=== PATIENT | male | born 1965 | race Caucasian/White ===

== ENCOUNTER 2017-08-13 07:43 | Emergency (ER) | payer BC, MEDICAID ==
[~2017-08-13] VITALS: Ht 175.3 cm; Wt 83.9 kg
--- OUTSIDE RECORDS SUMMARY | 2017-08-13 07:48 | XMS REPORT ---
Author Author Virginia Villar [facility] Address [address], [place] [id number] Care Team Providers Care Qa Automation Engineer Name Role Phone Virginia Villar Unavailable PROBLEMS Type Condition ICD9-CM Code CWE33-LO Code Onset Dates Condition Status SNOMED Code Problem Hyperlipidemia E78.5 Active 60303450 Problem Hepatitis B B19.10 Active 72412550 Problem Acquired immune deficiency syndrome B20 Active 97145110 Problem Cough R05 Active 39916225 Problem Syncope and collapse R55 Active 393361959 Problem Shortness of breath R06.02 Active 818945982 Problem History of smoking 10-25 pack years Z87.891 Active 39335241 Problem Other fatigue R53.83 Active 52859668 ALLERGIES Unknown Allergies SOCIAL HISTORY No smoking Hx information available PLAN OF CARE Activity Details Follow Up 3 Months Reason:null Pending Test Human Immunodeficiency Virus (HIV-1), Quantitative, Real-time PCR (graph) 10533 Pending Test Vitamin B12 and Folate Pending Test Iron and Total Iron-Binding Capacity (TIBC) 68975 42943 Pending Test Vitamin D, 25-Hydroxy 39664 Pending Test Testosterone, Free, Direct with Total Testosterone 37788 22517 Pending Test B-Type Natriuretic Peptide (BNP) Pending Test Thyroid-Stimulating Hormone (TSH) and Free T4 55277/58440 Pending Test Metabolic Panel (14), Comprehensive (CMP) 06706 Pending Test CD4/CD8 Ratio Profile 97183 VITAL SIGNS Height 67.5 in 2016-11-11 Weight 165 lbs 2016-11-11 Temperature 96.7 degrees Fahrenheit 2016-11-11 Heart Rate 65 /min 2016-11-11 Respiratory Rate 18 /min 2016-11-11 Oximetry 99 % 2016-11-11 BMI 25.46 kg/m2 2016-11-11 Blood pressure systolic 118 mm Hg 2016-11-11 Blood pressure diastolic 82 mm Hg 2016-11-11 MEDICATIONS Medication Instructions Dosage Frequency Start Date End Date Duration Status Atripla 600-200-300 MG Orally Once a day 1 tablet on an empty stomach 24h Oct, 30 Active Atorvastatin Calcium 20 MG Orally Once a day 1 tablet 24h Oct, 30 day(s) Active RESULTS No Results PROCEDURES Procedure Date Ordered Related Diagnosis Body Site ASSAY OF IRON Nov 11, 2016 IRON BINDING TEST Nov 11, 2016 ASSAY THYROID STIM HORMONE Nov 11, 2016 BLOOD FOLIC ACID SERUM Nov 11, 2016 HIV-1, DNA, QUANT Nov 11, 2016 ASSAY OF VITAMIN D Nov 11, 2016 VITAMIN B-12 Nov 11, 2016 ASSAY OF FREE THYROXINE Nov 11, 2016 ASSAY OF TOTAL TESTOSTERONE Nov 11, 2016 COMPREHEN METABOLIC PANEL Nov 11, 2016 ASSAY OF TESTOSTERONE Nov 11, 2016 NATRIURETIC PEPTIDE Nov 11, 2016 T CELL, ABSOLUTE COUNT/RATIO Nov 11, 2016 Office Visit, Est Pt., Level 3 Nov 11, 2016 IMMUNIZATIONS No Known Immunizations
--- OUTSIDE RECORDS SUMMARY | 2017-08-13 07:48 | XMS REPORT ---
Author BOY Ware Organization [employer] Address Unknown Phone Unavailable Care Team Providers Care Field Secretary Name Role Phone BOY AMBRIZ CP Unavailable Allergies No Known Allergies Problems Problem Type Condition Code Onset Dates Condition Status Problem Dental examination Z01.20 Active Medications No Known Medications Results No Known Results Summary Purpose [employer] Submission
--- OUTSIDE RECORDS SUMMARY | 2017-08-13 07:48 | XMS REPORT ---
Author KARLOS Cain Organization [employer] Address Unknown Phone Unavailable Care Team Providers Care Junior Account Manager Name Role Phone KARLOS VIEYRA CP Unavailable Allergies, Adverse Reactions, Alerts Substance Reaction Event Type N.K.D.A. Info Not Available Non Drug Allergy Problems Problem Type Condition Code Onset Dates Condition Status Assessment Dental caries K02.9 Active Problem Dental examination Z01.20 Active Medications Medication Code System Code Instructions Start Date End Date Status Dosage Atripla [facility] [address]-37 600-200-300 MG Orally Once a day 1 tablet on an empty stomach Procedures Procedure Coding System Code Date EXTRAC ERUPTED TOOTH/EXPOSED ROOT CPT-4 D7140 October 15, 2015 EXTRAC ERUPTED TOOTH/EXPOSED ROOT CPT-4 D7140 October 15, 2015 EXTRAC ERUPTED TOOTH/EXPOSED ROOT CPT-4 D7140 October 15, 2015 Vital Signs Date/Time: October 15, 2015 Blood Pressure Diastolic 97 mmHg Blood Pressure Systolic 140 mmHg Results No Known Results Summary Purpose [employer] Submission
--- OUTSIDE RECORDS SUMMARY | 2017-08-13 07:49 | XMS REPORT ---
Author Author Virginia Villar Organization [employer] Address Unknown Phone Unavailable Care Team Providers Care Loan Officer Assistant Name Role Phone Virginia Villar Unavailable Allergies No Known Allergies Problems Problem Type Condition Code Onset Dates Condition Status Problem Hepatitis B B19.10 Active Problem AIDS B20 Active Problem Hyperlipidemia E78.5 Active Medications No Known Medications Results No Known Results Summary Purpose [employer] Submission
--- OUTSIDE RECORDS SUMMARY | 2017-08-13 07:49 | XMS REPORT ---
Author Author Virginia Villar Organization [facility] Address [address] [place] [id number] Care Team Providers Care Crosscutter Name Role Phone Virginia Villar Unavailable PROBLEMS Type Condition ICD9-CM Code NIG14-AC Code Onset Dates Condition Status SNOMED Code Problem Hyperlipidemia E78.5 Active 19604332 Problem Hepatitis B B19.10 Active 13448706 Problem Cough R05 Active 28212809 Problem Shortness of breath R06.02 Active 640884940 Problem Other fatigue R53.83 Active 14916625 Problem History of smoking 10-25 pack years Z87.891 Active 30296787 Problem Syncope and collapse R55 Active 126606694 Problem Acquired immune deficiency syndrome B20 Active 41771604 ALLERGIES No Information ENCOUNTERS Encounter Location Date Diagnosis [facility] [address] [phone] Jul, [address] [address] May, [address] [address] Feb, [address] [address] Feb, [facility] [address] [id number] Feb, Acquired immune deficiency syndrome B20 ; Vertigo R42 and Hyperlipidemia E78.[address] [address] Nov, [facility] [address] [id number] Nov, Acquired immune deficiency syndrome B20 ; Cough R05 ; History of smoking 10-25 pack years Z87.891 ; Other fatigue R53.83 ; Hepatitis B B19.10 ; Syncope and collapse R55 and Shortness of breath R06.[address] [id number] August, AIDS B20 ; Hepatitis B B19.10 and Other fatigue R53.[address] [id number] 10 May, 2016 AIDS B20 ; Hepatitis B B19.10 ; Hyperlipidemia E78.5 and Screening for prostate cancer Z12.[address] [id number] Jan, Acquired immune deficiency syndrome B20 ; Influenza vaccine needed Z23 ; Hepatitis B B19.10 and Hyperlipidemia E78.[address] [address] Oct, [address] [id number] Oct, Hyperlipidemia E78.5 ; Hepatitis B B19.10 and AIDS B20 [address] [address] Sep, [address] [address] Sep, [address] [address] Sep, IMMUNIZATIONS No Known Immunizations SOCIAL HISTORY Never Assessed REASON FOR VISIT PLAN OF CARE VITAL SIGNS MEDICATIONS Unknown Medications RESULTS No Results PROCEDURES No Known procedures INSTRUCTIONS MEDICATIONS ADMINISTERED No Known Medications MEDICAL (GENERAL) HISTORY Type Description Date Medical History HIV-1988 Medical History IVDU Medical History Hep B Surgical History nasal surgery 1988 Hospitalization History AIDS 2000
--- OUTSIDE RECORDS SUMMARY | 2017-08-13 07:49 | XMS REPORT ---
Author Author BOY AMBRIZ [facility] Address [address] [place] [address] Care Team Providers Care Fermentation Operator Name Role Phone KATINA BOY Unavailable PROBLEMS Type Condition ICD9-CM Code OUX31-OO Code Onset Dates Condition Status SNOMED Code Problem Hyperlipidemia, unspecified E78.5 Active 42293425 Problem Prostate cancer screening Z12.5 Active 301236405 Problem Human immunodeficiency virus (HIV) disease B20 Active 23024736 Problem Dental examination Z01.20 Active 627358294 ALLERGIES No Information SOCIAL HISTORY Never Assessed PLAN OF CARE Activity Details Pending Test CBC VITAL SIGNS MEDICATIONS Unknown Medications RESULTS Name Result Date Reference Range SYPHILIS (RPR W/ REFLEX CONFIRMATION) 2016-05-18 RPR Non Reactive Non Reactive CD4/CD8 T CELL 2016-05-18 Absolute CD 4 [place] [phone] % CD 4 Pos. Lymph. 36.1 30.8-58.5 Abs. CD 8 Suppressor 1030 109-897 % CD 8 Pos. Lymph. 42.9 12.0-35.5 CD4/CD8 Ratio 0.84 0.92-3.72 WBC 8.7 3.4-10.8 RBC 5.28 4.14-5.80 Hemoglobin 15.7 12.6-17.7 Hematocrit 45.7 37.5-51.0 MCV 87 79-97 MCH 29.7 26.6-33.0 MCHC 34.4 31.5-35.7 RDW 14.1 12.3-15.4 Platelets 253 150-379 Neutrophils 58 Lymphs 28 Monocytes 9 Eos 4 Basos 1 Neutrophils (Absolute) 5.1 1.4-7.0 Lymphs (Absolute) 2.4 0.7-3.1 Monocytes(Absolute) 0.8 0.1-0.9 Eos (Absolute) 0.4 0.0-0.4 Baso (Absolute) 0.1 0.0-0.2 Immature Granulocytes 0 Immature Grans (Abs) 0.0 0.0-0.1 HIV PCR (Graph)-APPROVAL REQUIRED 2016-05-18 HIV-1 RNA by PCR <20 log10 HIV-1 RNA TNP PSA 2016-05-18 Prostate Specific Ag, Serum 0.7 0.0-4.0 LIPID PANEL 2016-05-18 Cholesterol, Total 166 100-199 Triglycerides 225 0-149 HDL Cholesterol 33 >39 VLDL Cholesterol [place] 45 5-40 LDL Cholesterol Calc 88 0-99 CMP 2016-05-18 Glucose, Serum 90 65-99 BUN 14 6-24 Creatinine, Serum 1.32 0.76-1.27 eGFR If NonAfricn Am 62 >59 eGFR If Africn Am 71 >59 BUN/Creatinine Ratio 11 9-20 Sodium, Serum 141 134-144 Potassium, Serum 4.3 3.5-5.2 Chloride, Serum 98 96-106 Carbon Dioxide, Total 26 18-29 Calcium, Serum 9.9 8.7-10.2 Protein, Total, Serum 6.8 6.0-8.5 Albumin, Serum 4.2 3.5-5.5 Globulin, Total 2.6 1.5-4.5 A/G Ratio 1.6 1.1-2.5 Bilirubin, Total <0.2 0.0-1.2 Alkaline Phosphatase, S 69 39-117 AST (SGOT) 31 0-40 ALT (SGPT) 52 0-44 PDF Report 2016-05-18 PDF Report1 [facility] PROCEDURES Procedure Date Ordered Result Body Site COMPLETE CBC W/AUTO DIFF WBC May 18, 2016 COMPREHEN METABOLIC PANEL May 18, 2016 VENIPUNCT, ROUTINE* May 18, 2016 ASSAY OF PSA, TOTAL May 18, 2016 T CELL, ABSOLUTE COUNT/RATIO May 18, 2016 LIPID PANEL May 18, 2016 BLOOD SEROLOGY, QUALITATIVE May 18, 2016 HIV-1, DNA, QUANT May 18, 2016 IMMUNIZATIONS No Known Immunizations MEDICAL (GENERAL) HISTORY Type Description Date Medical History HIV/AIDS Medical History Hepatitis B
--- OUTSIDE RECORDS SUMMARY | 2017-08-13 07:49 | XMS REPORT ---
Author KARLOS Cain Organization [employer] Address Unknown Phone Unavailable Care Team Providers Care Consulting Nurse Name Role Phone KARLOS VIEYRA CP Unavailable Allergies No Known Allergies Problems Problem Type Condition Code Onset Dates Condition Status Problem Dental examination Z01.20 Active Medications Medication Code System Code Instructions Start Date End Date Status Dosage Amoxicillin [facility][NOTE 2] [address]-75 500 MG Orally every 8 hrs September 30, 2015 October 07, 2015 1 capsule Results No Known Results Summary Purpose eClinicalWorks Submission
--- OUTSIDE RECORDS SUMMARY | 2017-08-13 07:49 | XMS REPORT ---
Author Rhoda Yepez [facility] e[employer] Address Unknown Phone Unavailable Care Team Providers Care Warp Dresser Name Role Phone Rhoda Rivera CP Unavailable Allergies, Adverse Reactions, Alerts Substance Reaction Event Type N.K.D.A. Info Not Available Non Drug Allergy Problems Problem Type Condition Code Onset Dates Condition Status Problem Hepatitis B B19.10 Active Problem AIDS B20 Active Problem Hyperlipidemia E78.5 Active Assessment AIDS B20 Active Assessment Hyperlipidemia E78.5 Active Assessment Hepatitis B B19.10 Active Medications Medication Code System Code Instructions Start Date End Date Status Dosage Atripla [facility] [address]-80 600-200-300 MG Orally Once a day September 10, 2015 1 tablet on an empty stomach Atorvastatin Calcium [facility] [address]-18 20 MG Orally Once a day October 09, 2015 1 tablet Procedures Procedure Coding System Code Date Office Visit, New Pt., Level 2 CPT-4 06563 October 09, 2015 Vital Signs Date/Time: October 09, 2015 Temperature 97.2 F Weight 164.9 lbs Height 68 in Respiratory Rate 18 /min Cardiac Monitoring Heart Rate 72 /min Blood Pressure Diastolic 70 mm Hg Blood Pressure Systolic 116 mm Hg BMI 25.07 Index Results No Known Results Summary Purpose [employer]ClinicalWorks Submission
--- OUTSIDE RECORDS SUMMARY | 2017-08-13 07:49 | XMS REPORT ---
Author Author Virginia Villar [facility] Address [address] [place], [place] [id number] Care Team Providers Care Green Pipefitter Name Role Phone Virginia Villar Unavailable PROBLEMS Type Condition ICD9-CM Code YXW07-KD Code Onset Dates Condition Status SNOMED Code Problem Hyperlipidemia E78.5 Active 71597051 Problem Hepatitis B B19.10 Active 26773331 Problem Cough R05 Active 87275341 Problem Shortness of breath R06.02 Active 766902654 Problem Other fatigue R53.83 Active 91212043 Problem History of smoking 10-25 pack years Z87.891 Active 49942620 Problem Syncope and collapse R55 Active 447140912 Problem Acquired immune deficiency syndrome B20 Active 87433848 ALLERGIES No Information SOCIAL HISTORY Never Assessed PLAN OF CARE VITAL SIGNS MEDICATIONS Unknown Medications RESULTS No Results PROCEDURES No Known procedures IMMUNIZATIONS No Known Immunizations MEDICAL (GENERAL) HISTORY Type Description Date Medical History HIV-1988 Medical History IVDU Medical History Hep B Surgical History nasal surgery 1988 Hospitalization History AIDS 2000
--- OUTSIDE RECORDS SUMMARY | 2017-08-13 07:49 | XMS REPORT ---
Author Author Virginia Villar [facility] Address [address] [place], [place] [id number] Care Team Providers Care Cable Assembler And Swager Name Role Phone Virginia Villar Unavailable PROBLEMS Type Condition ICD9-CM Code OWI74-QN Code Onset Dates Condition Status SNOMED Code Problem Hyperlipidemia E78.5 Active 13654853 Problem Hepatitis B B19.10 Active 60571772 Problem Acquired immune deficiency syndrome B20 Active 20430883 Problem Cough R05 Active 61452414 Problem Syncope and collapse R55 Active 740014957 Problem Shortness of breath R06.02 Active 260022555 Problem History of smoking 10-25 pack years Z87.891 Active 67910342 Problem Other fatigue R53.83 Active 23648722 ALLERGIES Unknown Allergies SOCIAL HISTORY No smoking Hx information available PLAN OF CARE VITAL SIGNS MEDICATIONS Unknown Medications RESULTS No Results PROCEDURES No Known procedures IMMUNIZATIONS No Known Immunizations
--- OUTSIDE RECORDS SUMMARY | 2017-08-13 07:49 | XMS REPORT ---
Author BOY Ware Organization [employer] Address Unknown Phone Unavailable Care Team Providers Care Freight Sorter Name Role Phone BOY AMBRIZ CP Unavailable Allergies No Known Allergies Problems Problem Type Condition Code Onset Dates Condition Status Problem Dental examination Z01.20 Active Medications No Known Medications Results No Known Results Summary Purpose eClinicalWorks Submission
--- OUTSIDE RECORDS SUMMARY | 2017-08-13 07:49 | XMS REPORT ---
Author Author Virginia Villar [facility] Address [address] [place], [place] [address] Care Team Providers Care Agriscience Technology Instructor Name Role Phone Virginia Villar Unavailable PROBLEMS Type Condition ICD9-CM Code BFZ35-LE Code Onset Dates Condition Status SNOMED Code Problem Hyperlipidemia E78.5 Active 42030175 Problem Hepatitis B B19.10 Active 91350889 Problem Cough R05 Active 77122894 Problem Shortness of breath R06.02 Active 220526334 Problem Other fatigue R53.83 Active 83198300 Problem History of smoking 10-25 pack years Z87.891 Active 75693125 Problem Syncope and collapse R55 Active 950821429 Problem Acquired immune deficiency syndrome B20 Active 53698330 ALLERGIES No Information SOCIAL HISTORY Never Assessed PLAN OF CARE VITAL SIGNS MEDICATIONS Unknown Medications RESULTS No Results PROCEDURES No Known procedures IMMUNIZATIONS No Known Immunizations MEDICAL (GENERAL) HISTORY Type Description Date Medical History HIV-1988 Medical History IVDU Medical History Hep B Surgical History nasal surgery 1988 Hospitalization History AIDS 2000
--- OUTSIDE RECORDS SUMMARY | 2017-08-13 07:49 | XMS REPORT ---
Author Author Virginia Villar [facility] [employer] Address Unknown Phone Unavailable Care Team Providers Care Supervisor Park Workers Name Role Phone Virginia Villar CP Unavailable Allergies No Known Allergies Problems Problem Type Condition Code Onset Dates Condition Status Problem Hepatitis B B19.10 Active Problem AIDS B20 Active Problem Hyperlipidemia E78.5 Active Assessment Hepatitis B B19.10 Active Assessment Hyperlipidemia E78.5 Active Assessment Acquired immune deficiency syndrome B20 Active Assessment Influenza vaccine needed Z23 Active Medications Medication Code System Code Instructions Start Date End Date Status Dosage Atripla [facility] [address]-76 600-200-300 MG Orally Once a day September 10, 2015 1 tablet on an empty stomach Atorvastatin Calcium [facility] [address]-10 20 MG Orally Once a day October 09, 2015 1 tablet Procedures Procedure Coding System Code Date T CELL, ABSOLUTE COUNT/RATIO CPT-4 97789 Jan 22, 2016 HIV-1, DNA, QUANT CPT-4 16357 Jan 22, 2016 COMPREHEN METABOLIC PANEL CPT-4 12674 Jan 22, 2016 Office Visit, Est Pt., Level 3 CPT-4 19277 Jan 22, 2016 LIPID PANEL SO CPT-4 88480 Jan 22, 2016 IMMUNIZATION ADMIN CPT-4 61143 Jan 22, 2016 FLU VAC NO PRSV 4 JU 3 YRS+ CPT-4 45436 Jan 22, 2016 HEPATITIS B, QUANT CPT-4 51265 Jan 22, 2016 Vital Signs Date/Time: Jan 22, 2016 Temperature 98.1 F Weight 166 lbs Height 67.5 in Respiratory Rate 16 /min Cardiac Monitoring Heart Rate 64 /min Blood Pressure Diastolic 80 mm Hg Blood Pressure Systolic 140 mm Hg BMI 25.61 Index Results Name Result Date Reference Range Unit Abnormality Flag Lipid Panel 85372 ----HDL Cholesterol 37 92221228 >39 mg/dL L ----VLDL Cholesterol [place] 38 67812013 5-40 mg/dL ----LDL Cholesterol Calc 81 29963266 0-99 mg/dL ----Comment: GILL TENDER [id number] ----Cholesterol, Total 156 36246211 100-199 mg/dL ----Triglycerides 188 43410461 0-149 mg/dL H Metabolic Panel (14), Comprehensive ([facility]) 24093 ----Globulin, Total 2.1 00050127 1.5-4.5 g/dL ----eGFR If Africn Am 75 18997389 >59 mL/min/1.73 ----eGFR If NonAfricn Am 65 71691590 >59 mL/min/1.73 ----Albumin, Serum 4.4 68938988 3.5-5.5 g/dL ----Sodium, Serum 142 47587046 136-144 mmol/L ----Protein, Total, Serum 6.5 57003198 6.0-8.5 g/dL ----BUN/Creatinine Ratio 10 92513539 9-20 ----Calcium, Serum 9.2 01448847 8.7-10.2 mg/dL ----AST (SGOT) 36 12488327 0-40 IU/L ----Glucose, Serum 88 01173565 65-99 mg/dL ----Alkaline Phosphatase, S 60 75729397 39-117 IU/L ----Bilirubin, Total <0.2 76204729 0.0-1.2 mg/dL ----Creatinine, Serum 1.27 64879276 0.76-1.27 mg/dL ----A/G Ratio 2.1 51524244 1.1-2.5 ----BUN 13 74836942 6-24 mg/dL ----Carbon Dioxide, Total 22 59765000 18-29 mmol/L ----ALT (SGPT) 51 95567488 0-44 IU/L H ----Potassium, Serum 4.0 98939645 3.5-5.2 mmol/L ----Chloride, Serum 101 46999956 97-106 mmol/L Human Immunodeficiency Virus (HIV-1), Quantitative, Real-time PCR (graph) 44881 ----HIV-1 RNA by PCR <20 20661730 copies/mL ----log10 HIV-1 RNA TNP 21246601 kea34ssal/mL Hepatitis B (HBV) RT PCR, Quant (Graph) 30411 ----log10 HBV IU/mL TNP 13417159 pgj80NK/mL ----HBV IU/mL <20 42985314 IU/mL CD4/CD8 Ratio Profile 18385 ----Hemoglobin 15.4 82897639 12.6-17.7 g/dL ----RBC 5.32 67411438 4.14-5.80 x10E6/uL ----WBC 7.6 84915638 3.4-10.8 x10E3/uL ----CD4/CD8 Ratio 1.02 58492757 0.92-3.72 ----% CD 8 Pos. Lymph. 38.5 35006623 12.0-35.5 % H ----Abs. CD 8 Suppressor 693 03347651 109-897 /uL ----% CD 4 Pos. Lymph. 39.3 45510623 30.8-58.5 % ----Immature Cells GILL TENDER 20160122 ----Absolute CD 4 [place] 707 18205706 359-1519 /uL ----Lymphs (Absolute) 1.8 51521621 0.7-3.1 x10E3/uL ----Neutrophils (Absolute) 4.7 71569495 1.4-7.0 x10E3/uL ----Eos (Absolute) 0.3 31429712 0.0-0.4 x10E3/uL ----Monocytes(Absolute) 0.8 00435219 0.1-0.9 x10E3/uL ----Immature Granulocytes 0 79264352 % ----Baso (Absolute) 0.1 41720975 0.0-0.2 x10E3/uL ----NRBC GILL TENDER 20160122 ----Immature Grans (Abs) 0.0 04445439 0.0-0.1 x10E3/uL ----Eos 4 78923975 % ----Basos 1 87831963 % ----Platelets 239 02370298 150-379 x10E3/uL ----Neutrophils 61 14670762 % ----Hematology Comments: GILL TENDER [id number] ----Lymphs 24 78401906 % ----Monocytes 10 68132098 % ----MCV 87 01970317 79-97 fL ----MCH 28.9 27043658 26.6-33.0 pg ----MCHC 33.4 00419230 31.5-35.7 g/dL ----RDW 15.3 02308416 12.3-15.4 % ----Hematocrit 46.1 53382238 37.5-51.0 % Immunizations Vaccine Administration Date Influenza Split 3 yrs > (QUAD) Jan 22, 2016 Summary Purpose eClinicalWorks Submission
--- OUTSIDE RECORDS SUMMARY | 2017-08-13 07:49 | XMS REPORT ---
Author Author Nicole Rhoda [facility] Address [address] [place], [place] [address] Care Team Providers Care Senior Data Warehouse Architect Name Role Phone Rhoda Rivera Unavailable PROBLEMS Type Condition ICD9-CM Code LCP51-AN Code Onset Dates Condition Status SNOMED Code Problem Hyperlipidemia E78.5 Active 03813401 Problem Hepatitis B B19.10 Active 81158281 Assessment Other fatigue R53.83 August, Active 86669462 Problem AIDS B20 Active 34019196 Assessment AIDS B20 August, Active 61696378 ALLERGIES Substance Reaction Event Type Date Status N.K.D.A. Unknown Non Drug Allergy August, Unknown SOCIAL HISTORY No smoking Hx information available PLAN OF CARE Activity Details Pending Test Human Immunodeficiency Virus (HIV-1), Quantitative, Real-time PCR (graph) 84479 Pending Test Hepatitis B (HBV) RT PCR, Quant (Graph) 47640 Pending Test Rapid Plasma Reagin (RPR), Test w/ Reflex to Quant RPR/Confirm Treponema pallidum Antibodies 41323 Pending Test Thyroid-Stimulating Hormone (TSH) and Free T4 11869/67982 Pending Test Metabolic Panel (14), Comprehensive (CMP) 00373 Pending Test CD4/CD8 Ratio Profile 62117 3 Months,Reason: VITAL SIGNS Height 67.5 in 2016-08-12 Weight 165 lbs 2016-08-12 Temperature 97.1 degrees Fahrenheit 2016-08-12 Heart Rate 71 /min 2016-08-12 Respiratory Rate 16 /min 2016-08-12 Oximetry 98 % 2016-08-12 BMI 25.46 kg/m2 2016-08-12 Blood pressure systolic 108 mm Hg 2016-08-12 Blood pressure diastolic 80 mm Hg 2016-08-12 MEDICATIONS Medication Instructions Dosage Frequency Start Date End Date Duration Status Atripla 600-200-300 MG Orally Once a day 1 tablet on an empty stomach 24h Sep, 30 days Active Atorvastatin Calcium 20 MG Orally Once a day 1 tablet 24h Oct, 30 day(s) Active RESULTS No Results PROCEDURES Procedure Date Ordered Related Diagnosis Body Site COMPLETE BLOOD COUNT W/AUTO DIFF August 12, 2016 T CELL, ABSOLUTE COUNT/RATIO August 12, 2016 HEPATITIS B, QUANT August 12, 2016 ASSAY OF FREE THYROXINE August 12, 2016 Office Visit, Est Pt., Level 3 August 12, 2016 COMPREHEN METABOLIC PANEL August 12, 2016 HIV-1, DNA, QUANT August 12, 2016 ASSAY THYROID STIM HORMONE August 12, 2016 BLOOD SEROLOGY, QUALITATIVE August 12, 2016 IMMUNIZATIONS No Known Immunizations
--- OUTSIDE RECORDS SUMMARY | 2017-08-13 07:49 | XMS REPORT ---
Author Author RiveraRhoda [facility] Address [address] [place], [place] [id number] Care Team Providers Care Psychology Tech Name Role Phone Rhoda Rivera Unavailable PROBLEMS Type Condition ICD9-CM Code QAN23-MK Code Onset Dates Condition Status SNOMED Code Problem Hyperlipidemia E78.5 Active 00377500 Problem Hepatitis B B19.10 Active 19345640 Problem Cough R05 Active 04935570 Problem Shortness of breath R06.02 Active 968030835 Problem Other fatigue R53.83 Active 21458631 Problem History of smoking 10-25 pack years Z87.891 Active 08308748 Problem Syncope and collapse R55 Active 523356312 Problem Acquired immune deficiency syndrome B20 Active 24493661 ALLERGIES No Known Allergies SOCIAL HISTORY Never Assessed PLAN OF CARE Activity Details Follow Up 3 Months Reason: Pending Test Human Immunodeficiency Virus (HIV-1), Quantitative, Real-time PCR (graph) 57694 Pending Test Metabolic Panel (14), Comprehensive (CMP) 17011 Pending Test CD4/CD8 Ratio Profile [address] Scan : Head with and without Contrast VITAL SIGNS Height 67.5 in 2017-02-03 Weight 167 lbs 2017-02-03 Temperature 97.4 degrees Fahrenheit 2017-02-03 Heart Rate 71 /min 2017-02-03 Respiratory Rate 16 /min 2017-02-03 Oximetry 99 % 2017-02-03 BMI 25.77 kg/m2 2017-02-03 Blood pressure systolic 98 mm Hg 2017-02-03 Blood pressure diastolic 64 mm Hg 2017-02-03 MEDICATIONS Medication Instructions Dosage Frequency Start Date End Date Duration Status Genvoya 150 mg/150 mg/200/mg/10 mg Oral Once a day 1 tablet 24h Feb, 30 days Active RESULTS No Results PROCEDURES Procedure Date Ordered Result Body Site COMPLETE BLOOD COUNT W/AUTO DIFF Feb 03, 2017 T CELL, ABSOLUTE COUNT/RATIO Feb 03, 2017 COMPREHEN METABOLIC PANEL Feb 03, 2017 HIV-1, DNA, QUANT Feb 03, 2017 IMMUNIZATIONS No Known Immunizations MEDICAL (GENERAL) HISTORY Type Description Date Medical History HIV-1988 Medical History IVDU Medical History Hep B Surgical History nasal surgery 1987 Hospitalization History AIDS 2000
--- OUTSIDE RECORDS SUMMARY | 2017-08-13 07:50 | XMS REPORT | Continuity of Care Document ---
Author Author [facility] Organization [facility] Address Unknown Phone Unavailable Allergies There is no data. Medications There is no data. Problems Date Dx Coded Attending Type Code Diagnosis Diagnosed By 10/06/2015 ELISSA MAHONEY WHNP Ot B20 HUMAN IMMUNODEFICIENCY VIRUS [HIV] DISEA 10/06/2015 ELISSA MAHONEY WHNP Ot B20 HUMAN IMMUNODEFICIENCY VIRUS [HIV] DISEA 10/06/2015 ELISSA MAHONEY WHNP Ot B20 HUMAN IMMUNODEFICIENCY VIRUS [HIV] DISEA 10/06/2015 ELISSA MAHONEY WHNP Ot B20 HUMAN IMMUNODEFICIENCY VIRUS [HIV] DISEA 10/07/2015 ELISSA MAHONEY WHNP Ot B20 HUMAN IMMUNODEFICIENCY VIRUS [HIV] DISEA 10/09/2015 ELISSA MAHONEY WHNP Ot B20 HUMAN IMMUNODEFICIENCY VIRUS [HIV] DISEA 10/12/2015 ELISSA MAHONEY WHNP Ot B20 HUMAN IMMUNODEFICIENCY VIRUS [HIV] DISEA 10/26/2015 ELISSA MAHONEY WHNP Ot B20 HUMAN IMMUNODEFICIENCY VIRUS [HIV] DISEA 02/07/2017 ELISSA MAHONEY WHNP Ot B20 HUMAN IMMUNODEFICIENCY VIRUS [HIV] DISEA 02/08/2017 ELISSA MAHONEY WHNP Ot B20 HUMAN IMMUNODEFICIENCY VIRUS [HIV] DISEA 02/09/2017 ELISSA MAHONEY WHNP Ot B20 HUMAN IMMUNODEFICIENCY VIRUS [HIV] DISEA 02/27/2017 OTHER, UNLISTED Ot R42 DIZZINESS AND GIDDINESS 03/10/2017 ELISSA MAHONEY WHNP Ot B20 HUMAN IMMUNODEFICIENCY VIRUS [HIV] DISEA 03/10/2017 OTHER, UNLISTED Ot R42 DIZZINESS AND GIDDINESS 03/16/2017 OTHER, UNLISTED Ot R42 DIZZINESS AND GIDDINESS Procedures There is no data. Results Test Result Range CD4/CD8 Ratio Profile - 05/18/16 15:33 WBC 8.7 x10E3/uL 3.4-10.8 RBC 5.28 x10E6/uL 4.14-5.80 Hemoglobin 15.7 g/dL 12.6-17.7 Hematocrit 45.7 % 37.5-51.0 MCV 87 fL 79-97 MCH 29.7 pg 26.6-33.0 MCHC 34.4 g/dL 31.5-35.7 RDW 14.1 % 12.3-15.4 Platelets 253 x10E3/uL 150-379 Neutrophils 58 % Lymphs 28 % Monocytes 9 % Eos 4 % Basos 1 % Neutrophils (Absolute) 5.1 x10E3/uL 1.4-7.0 Lymphs (Absolute) 2.4 x10E3/uL 0.7-3.1 Monocytes(Absolute) 0.8 x10E3/uL 0.1-0.9 Eos (Absolute) 0.4 x10E3/uL 0.0-0.4 Baso (Absolute) 0.1 x10E3/uL 0.0-0.2 Immature Granulocytes 0 % Immature Grans (Abs) 0.0 x10E3/uL 0.0-0.1 Absolute CD 4 [place] 866 /uL [id number] Abs. CD 8 Suppressor 1030 /uL 109-897 % CD 4 Pos. Lymph. 36.1 % 30.8-58.5 % CD 8 Pos. Lymph. 42.9 % 12.0-35.5 CD4/CD8 Ratio 0.84 0.92-3.72 Comp. Metabolic Panel (14) - 05/18/16 15:33 Glucose, Serum 90 mg/dL 65-99 BUN 14 mg/dL 6-24 Creatinine, Serum 1.32 mg/dL 0.76-1.27 eGFR If NonAfricn Am 62 mL/min/1.73 >59 eGFR If Africn Am 71 mL/min/1.73 >59 BUN/Creatinine Ratio 11 9-20 Sodium, Serum 141 mmol/L 134-144 Potassium, Serum 4.3 mmol/L 3.5-5.2 Chloride, Serum 98 mmol/L 96-106 Carbon Dioxide, Total 26 mmol/L 18-29 Calcium, Serum 9.9 mg/dL 8.7-10.2 Protein, Total, Serum 6.8 g/dL 6.0-8.5 Albumin, Serum 4.2 g/dL 3.5-5.5 Globulin, Total 2.6 g/dL 1.5-4.5 A/G Ratio 1.6 1.1-2.5 Bilirubin, Total <0.2 mg/dL 0.0-1.2 Alkaline Phosphatase, S 69 IU/L 39-117 AST (SGOT) 31 IU/L 0-40 ALT (SGPT) 52 IU/L 0-44 Lipid Panel - 05/18/16 15:33 Cholesterol, Total 166 mg/dL 100-199 Triglycerides 225 mg/dL 0-149 HDL Cholesterol 33 mg/dL >39 VLDL Cholesterol [place] 45 mg/dL 5-40 LDL Cholesterol Calc 88 mg/dL 0-99 RNA, Real Time PCR (Graph) - 05/18/16 15:33 HIV-1 RNA by PCR <20 copies/mL log10 HIV-1 RNA TNP [id number]/mL Prostate-Specific Ag, Serum - 05/18/16 15:33 Prostate Specific Ag, Serum 0.7 ng/mL 0.0-4.0 RPR, Rfx Qn RPR/Confirm TP - 05/18/16 15:33 RPR Non Reactive Non Reactive CD4/CD8 Ratio Profile [id number] - 02/06/17 09:41 Absolute CD 4 [place] TNP NRG % CD 4 Pos. Lymph. 39.0 % 30.8-58.5 Abs. CD 8 Suppressor TNP NRG % CD 8 Pos. Lymph. 43.3 % 12.0-35.5 CD4/CD8 Ratio 0.90 0.92-3.72 WBC 7.4 x10E3/uL 3.4-10.8 RBC 5.22 x10E6/uL 4.14-5.80 Hemoglobin 15.8 g/dL 12.6-17.7 Hematocrit 48.9 % 37.5-51.0 MCV 94 fL 79-97 MCH 30.3 pg 26.6-33.0 MCHC 32.3 g/dL 31.5-35.7 RDW 14.5 % 12.3-15.4 Platelets 243 x10E3/uL 150-379 Neutrophils TNP NRG Lymphs TNP NRG Monocytes TNP NRG Eos TNP NRG Basos PHARMACEUTICAL DEVELOPMENT TECHNICIAN NRG Immature Cells PHARMACEUTICAL DEVELOPMENT TECHNICIAN NRG Neutrophils (Absolute) PHARMACEUTICAL DEVELOPMENT TECHNICIAN NRG Lymphs (Absolute) TNP NRG Monocytes(Absolute) PHARMACEUTICAL DEVELOPMENT TECHNICIAN NRG Eos (Absolute) TNP NRG Baso (Absolute) TNP NRG Immature Granulocytes PHARMACEUTICAL DEVELOPMENT TECHNICIAN NRG Immature Grans (Abs) PHARMACEUTICAL DEVELOPMENT TECHNICIAN NRG NRBC PHARMACEUTICAL DEVELOPMENT TECHNICIAN NRG Hematology Comments: Note: NRG Written Authorization - 02/06/17 09:41 Written Authorization NRG Encounters ACCT No. Visit Date/Time Discharge Status Pt. Type Provider Facility Loc./Unit Complaint [id number] 02/09/2017 12:50:00 02/09/2017 23:59:59 CLS Outpatient OTHER, UNLISTED [facility] RAD R42 VERTIGO [id number] 09/14/2015 08:45:00 09/14/2015 23:59:59 CLS Outpatient ELISSA MAHONEY WHNP [facility] LAB HIV [id number] 07/14/2017 11:45:00 07/14/2017 23:59:59 CLS Outpatient MARTÍN FAY [facility] [id number] 05/20/2016 22:07:00 Document Registration [id number] 02/03/2017 10:00:00 02/03/2017 23:59:59 CLS Outpatient [facility] Vill[facility] [id number] 02/03/2017 10:00:00 Document Registration
--- NOTE | 2017-08-13 07:55 | ED Neurological Problem ---
General Stated Complaint: SEIZURE Source: patient Exam Limitations: no limitations History of Present Illness Date Seen by Provider: August 13, 2017 Time Seen by Provider: 07:45 Initial Comments The patient presents to the ER by EMS with a chief complaint that just prior to arrival he is having some seizure-like activity. His mother reported to EMS that he does not have any history of seizures. The patient arrives in a non- postictal state and answers questions appropriately. EMS reports when they first arrived he was violently postictal and swinging at the fire department and they were having difficulty getting vital signs are loading him up. Patient states he has had a beer 2 days ago but does not use any recreational drugs. He does still smoke cigarettes. He was working in the backyard with a chain saw all day and his dad says he is afraid maybe overdid it. He does have a history of HIV and is being treated by JOSE Morataya which time through the [facility] but no other significant medical history or surgical history. He does not presently take any medications. He denies any trauma, falls, car wrecks recently. He is not having any pain, nausea, chills, fever, shortness of breath. He has a cough that he attributes to allergies for the past couple days but is not taking anything for it. The patient states he did bite the side of his tongue and had some blood coming from it this morning. His family arrives and is a little more history that his girlfriend says she was awoken by him shaking in the bed with some blood out of the side of his mouth. His mother states that about one year ago in the summer he had a similar episode of having a seizure like activity while asleep witnessed by girlfriend. He has not had that worked up although he did have a CT scan about 3 months ago for an unrelated issue and was told it was normal. Allergies and Home Medications Allergies Coded Allergies: No Known Drug Allergies (Unverified , 08/13/17) Patient Home Medication List Home Medication List Reviewed: Yes Review of Systems Constitutional: No chills, No diaphoresis, No fever, No malaise Eyes: Denies Blindness, Denies Blurred Vision, Denies Pain, Denies Photophobia Ears, Nose, Mouth, Throat: denies ear pain, denies ear discharge Respiratory: cough (nonproductive); No phlegm, No short of breath Cardiovascular: No chest pain, No edema, No Hx of Intervention, No palpitations , No vascular heart diseas Gastrointestinal: No abdominal pain, No constipation, No diarrhea, No nausea, No vomiting Genitourinary: No discharge, No dysuria Musculoskeletal: No back pain, No joint pain Skin: No pruritus, No rash Psychiatric/Neurological: Denies Cognitive Dysfunction, Denies Headache, Denies Numbness Past Tvwybju-Vttevj-Vexrgy Hx Patient Social History Alcohol Use: Occasionally Uses Alcohol Beverage of Choice: Beer (last drink was 2 days ago) Recreational Drug Use: No Smoking Status: Current Everyday Smoker Type Used: Cigarettes (1 ppd) Physical Exam Vital Signs Vital Signs - First Documented 08/13/17 08:11 Temp 98.2 Pulse 95 Resp 16 B/P (MAP) 132/80 (97) Pulse Ox 98 Capillary Refill : General Appearance: WD/WN, no apparent distress HEENT: PERRL/EOMI, normal ENT inspection, pharynx normal Neck: non-tender, supple, normal inspection Respiratory: chest non-tender, lungs clear, normal breath sounds, no respiratory distress, no accessory muscle use Cardiovascular: normal peripheral pulses, regular rate, rhythm, no edema Gastrointestinal: normal bowel sounds, non tender, soft Extremities: normal range of motion, non-tender, normal inspection Neurologic/Psychiatric: drop man II-XII nml as tested, no motor/sensory deficits, alert, normal mood/affect, oriented x 3 Crainal Nerves: normal hearing, normal speech, PERRL Coordination/Gait: normal finger to nose, normal gait Motor/Sensory: no motor deficit, no sensory deficit Skin: normal color, warm/dry Stroke Onset of Symptoms Date of Onset of Symptoms: August 13, 2017 Time of Symptom Onset: 09:35 Onset of Symptoms: Yes Symptoms onset unknown: No NIH Stroke Scale Assessment Select: Initial Level of Consciousness: 0=Alert (0), Level of Consciousness- Questions: 2=Answer neither question (2), LOC Commands: 0=Performs both tasks (0 ), Gaze: Normal (0), Visual Larios: 0=No visual loss (0), Facial Movement ( Facial Paresis): 0=Normal symmetrical mnt (0), Motor Function-Arms Right: 0=No drift (0), Motor Function-Arms Left: 0=No drift (0), Motor Function-Legs Right: 0=No drift (0), Motor Function-Legs Left: 0=No drift (0), Limb Ataxia: 0=Absent (0), Sensory: 0=Normal:no loss (0), Best Language: 2=Severe aphasia (2), Dysarthria: 1=Mild to moderate loss (1), Extinction & Inattention: 0=No abnormality (0), Total: 5 Stroke Thrombolytic Exclusion Age 18 or Over: No Acute intenal hemorrhage: No History of CVA: No Uncontrolled Coagulation Defec: No Intracranial Hemorrhage: No Severe Hypertension: No GI or Bleed: No Subarachnoid Hemorrhage: No Intracranial Neoplasm/Aneurysm: No Oral Anticoagulants: No Surgery or Trauma: No Puncture of Non-Compressible V: No Recent CPR: No Diabetic Hemorrhagic Retinopat: No Organ Biopsy: No Recent Obstetric Delivery: No Glucose: No (100) Significant Hepatic Dysfunctio: No NIH Stoke Scale >22: No Bacterial Endocarditis: No Pericarditis: No Improving Symptoms: Yes Platelets: No TPA Contraindication: Yes IV - TPa Received IV - TPa Procedure Performed?: No Progress/Results/Core Measures Results/Orders Lab Results Laboratory Tests Test 08/13/17 07:55 08/13/17 08:00 08/13/17 08:09 08/13/17 09:47 Range/Units Urine Color YELLOW Urine Clarity CLEAR Urine pH 6 5-9 Urine Specific [place] 1.020 1.016-1.022 Urine Protein 1+ H NEGATIVE Urine Glucose (UA) NEGATIVE NEGATIVE Urine Ketones NEGATIVE NEGATIVE Urine Nitrite NEGATIVE NEGATIVE Urine Bilirubin NEGATIVE NEGATIVE Urine Urobilinogen NORMAL NORMAL MG/DL Urine Leukocyte Esterase NEGATIVE NEGATIVE Urine RBC (Auto) 2+ H NEGATIVE Urine RBC NONE /HPF Urine WBC NONE /HPF Urine Crystals NONE /LPF Urine Bacteria NEGATIVE /HPF Urine Casts NONE /LPF Urine Mucus NEGATIVE /LPF Urine Culture Indicated NO Urine Opiates Screen NEGATIVE NEGATIVE Urine Oxycodone Screen NEGATIVE NEGATIVE Urine Methadone Screen NEGATIVE NEGATIVE Urine Propoxyphene Screen NEGATIVE NEGATIVE Urine Barbiturates Screen NEGATIVE NEGATIVE Ur Tricyclic Antidepressants Screen NEGATIVE NEGATIVE Urine Phencyclidine Screen NEGATIVE NEGATIVE Urine Amphetamines Screen NEGATIVE NEGATIVE Urine Methamphetamines Screen NEGATIVE NEGATIVE Urine Benzodiazepines Screen NEGATIVE NEGATIVE Urine Cocaine Screen NEGATIVE NEGATIVE Urine Cannabinoids Screen NEGATIVE NEGATIVE White Blood Count 7.5 4.3-11.0 10^3/uL Red Blood Count 5.22 4.35-5.85 10^6/uL Hemoglobin 15.9 13.3-17.7 G/DL Hematocrit 46 40-54 % Mean Corpuscular Volume 89 80-99 FL Mean Corpuscular Hemoglobin 31 25-34 PG Mean Corpuscular Hemoglobin Concent 34 32-36 G/DL Red Cell Distribution Width 13.9 10.0-14.5 % Platelet Count 212 130-400 10^3/uL Mean Platelet Volume 9.6 7.4-10.4 FL Neutrophils (%) (Auto) 57 42-75 % Lymphocytes (%) (Auto) 26 12-44 % Monocytes (%) (Auto) 10 0-12 % Eosinophils (%) (Auto) 7 0-10 % Basophils (%) (Auto) 1 0-10 % Neutrophils # (Auto) 4.3 1.8-7.8 X 10^3 Lymphocytes # (Auto) 1.9 1.0-4.0 X 10^3 Monocytes # (Auto) 0.8 0.0-1.0 X 10^3 Eosinophils # (Auto) 0.5 H 0.0-0.3 10^3/uL Basophils # (Auto) 0.0 0.0-0.1 10^3/uL Sodium Level 140 135-145 MMOL/L Potassium Level 4.5 3.6-5.0 MMOL/L Chloride Level 108 H 98-107 MMOL/L Carbon Dioxide Level 22 21-32 MMOL/L Anion Gap 10 5-14 MMOL/L Blood Urea Nitrogen 14 7-18 MG/DL Creatinine 1.48 H 0.60-1.30 MG/DL Estimat Glomerular Filtration Rate 50 BUN/Creatinine Ratio 9 Glucose Level 114 H 70-105 MG/DL Calcium Level 9.9 8.5-10.1 MG/DL Total Bilirubin 0.3 0.1-1.0 MG/DL Aspartate Amino Transf (AST/SGOT) 22 5-34 U/L Alanine Aminotransferase (ALT/SGPT) 37 0-55 U/L Alkaline Phosphatase 58 40-136 U/L C-Reactive Protein High Sensitivity 0.32 0.00-0.50 MG/DL Total Protein 7.2 6.4-8.2 GM/DL Albumin 4.3 3.2-4.5 GM/DL Serum Alcohol < 10 <10 MG/DL Prothrombin Time 12.5 12.2-14.7 SEC INR Comment 0.9 0.8-1.4 Activated Partial Thromboplast Time 24 24-35 SEC D-Dimer 0.34 0.00-0.49 UG/ML Troponin I < 0.30 <0.30 NG/ML Glucometer 100 70-110 MG/DL My Orders Orders - JOSEMANUEL BURCH Alcohol (08/13/17 07:55) Cbc With Automated Diff (08/13/17 07:55) Comprehensive Metabolic Panel (08/13/17 07:55) Hs C Reactive Protein (08/13/17 07:55) Drug Screen Stat (Urine) (08/13/17 07:55) Ua Culture If Indicated (08/13/17 07:55) Ekg Tracing (08/13/17 08:19) Protime With Inr (08/13/17 09:44) Partial Thromboplastin Time (08/13/17:44) Fibrin Degradation Products (08/13/17:44) Troponin I (08/13/17 09:44) Chest 1 View, Ap/Pa Only (08/13/17:44) Nothing By Mouth (08/13/17 Lunch) Accucheck Stat ONCE (08/13/17 09:44) Vital Signs Stroke Patient Q15M (08/13/17 09:44) Ct Head Wo-R/O Stroke (08/13/17 09:44) O2 (08/13/17 09:44) Intake & Output 06,14,22 (08/13/17 09:44) Monitor-Rhythm Ecg Trace Only (08/13/17 09:44) Dysphagia Screening Tool (08/13/17 09:44) Vital Signs/I&O 08/13/17 08:11 Temp 98.2 Pulse 95 Resp 16 B/P (MAP) 132/80 (97) Pulse Ox 98 Progress Progress Note #1: Time: 07:59 Progress Note 2nd witnessed, unprovoked seizure like activity by family without loss of continence, or any subsequent pain or damage. We'll look for reasons for provocation with a urine drug screen, urinalysis, CBC, CRP and CMP. We will get an EKG. It seems the pattern for these to seizure-like activities are occurring in the early hours of the morning or he still asleep and so could be related to sleep apnea induced hypoxia versus epilepsy. 2 events in 12 months. The patient reports recent neuro imaging that was normal 3 months ago and also states that he will follow up outpatient. We've given him the option of doing imaging here or along of doing an outpatient. He's also been eaten EEG done outpatient. Because of his complete return to baseline and no neurologic deficits think this would be appropriate to follow up outpatient with his primary care office. Progress Note #2: Time: 10:33 Progress Note After lengthy discussion with the patient and his family the patient was offered to go by ambulance or by private vehicle to [place] to be a direct admit and be worked up inpatient by neurology and internal medicine for his seizure- like activity. The patient has declined and said he does not want to because he wants to be able to go to work Monday. Was explained to him that there is a good possibility he would be out by Monday but he says he isn't under no circumstances going to Hospital to have this worked up and would prefer to have it worked up outpatient with his primary care provider. He has assured me that he will do that. We have discussed that this would be AGAINST MEDICAL ADVICE of both a neurologist and myself and this is still the course of action he wants to go on. We have done some counseling on how to manage seizures and explained to him that he should not drive until cleared by a physician. The patient's alert and oriented 4, NIH score of 0 and he is decisional. Initial ECG Impression Date: August 13, 2017 Initial ECG Impression Time: 08:24 Initial ECG Rate: 66 Initial ECG Rhythm: Normal Sinus Initial ECG Intervals: Normal Initial ECG Impression: Normal, Nonspecific Changes Initial ECG Comparisson: No Previous ECG Available Comment No T-wave elevation or depression Consults : Consults Notes Discussed the case with business relations manager [facility] neurology and she agrees that she does not believe that this is a stroke rather it represents to unprovoked seizures in close succession. She recommends an inpatient workup. Departure Impression Primary Impression: Seizure Disposition: Condition: Against Medical Advice Departure-Patient Inst. Decision time for Depature: 10:35 Referrals: NO,LOCAL PHYSICIAN (PCP/Family) Primary Care Physician Patient Instructions: Seizures, Adult (DC) Add. Discharge Instructions: Tomorrow morning please call your primary care doctor's office and request an appointment to follow up for seizure. They should consider doing an EEG as well as possibly some imaging of your head if necessary. If you begin to have more seizures please have someone to be safe and time them. If they go beyond 5-6 minutes or are having several [id number] lasting more than 10-15 minutes he should return to the nearest ER for further evaluation. JOSEMANUEL BURCH August 13, 2017 07:54
[2017-08-13 08:05] LABS: BILIRUBIN,URINE NEGATIVE (NEGATIVE); CLARITY,URINE CLEAR; COLOR,URINE YELLOW; GLUCOSE, URINE (UA) NEGATIVE (NEGATIVE); KETONES,URINE NEGATIVE (NEGATIVE); LEUKOCYTE ESTERASE ,URINE NEGATIVE (NEGATIVE); NITRITE,URINE NEGATIVE (NEGATIVE); PH,URINE 6 (5-9); PROTEIN,URINE 1+ (NEGATIVE); UROBILINOGEN,URINE NORMAL (NORMAL)
[2017-08-13 08:15] VITALS: BP 132/80
[2017-08-13 08:20] LABS: BASOPHILS % (AUTO) 1 % (0-10); EOSINOPHILS # (AUTO) 0.5 10^3/uL (0.0-0.3); EOSINOPHILS % (AUTO) 7 % (0-10); HEMATOCRIT 46 % (40-54); HEMOGLOBIN 15.9 G/DL (13.3-17.7); LYMPHOCYTES # (AUTO) 1.9 X 10^3 (1.0-4.0); LYMPHOCYTES % (AUTO) 26 % (12-44); MEAN CORPUSCULAR HEMOGLOBIN 31 PG (25-34); MEAN CORPUSCULAR HGB CONC 34 G/DL (32-36); MEAN CORPUSCULAR VOLUME 89 FL (80-99); MEAN PLATELET VOLUME 9.6 FL (7.4-10.4); MONOCYTES # (AUTO) 0.8 X 10^3 (0.0-1.0); MONOCYTES % (AUTO) 10 % (0-12); NEUTROPHILS # (AUTO) 4.3 X 10^3 (1.8-7.8); NEUTROPHILS % (AUTO) 57 % (42-75); PLATELET COUNT 212 10^3/uL (130-400); RED BLOOD COUNT 5.22 10^6/uL (4.35-5.85); RED CELL DISTRIBUTION WIDTH 13.9 % (10.0-14.5); WHITE BLOOD COUNT 7.5 10^3/uL (4.3-11.0)
[2017-08-13 08:21] LABS: BACTERIA,URINE NEGATIVE /HPF
[2017-08-13 08:38] LABS: ALANINE AMINOTRANSFERASE 37 U/L (0-55); ALBUMIN 4.3 GM/DL (3.2-4.5); ALKALINE PHOSPHATASE 58 U/L (40-136); BILIRUBIN,TOTAL 0.3 MG/DL (0.1-1.0); BUN/CREATININE RATIO 9; CALCIUM 9.9 MG/DL (8.5-10.1); CARBON DIOXIDE 22 MMOL/L (21-32); CHLORIDE 108 MMOL/L (98-107); CREATININE SERUM 1.48 MG/DL (0.60-1.30); GFR ESTIMATED 50; GLUCOSE 114 MG/DL (70-105); POTASSIUM 4.5 MMOL/L (3.6-5.0); SODIUM 140 MMOL/L (135-145); TOTAL PROTEIN 7.2 GM/DL (6.4-8.2)
[2017-08-13 09:40] LABS: AMPHETAMINE SCREEN, URINE NEGATIVE (NEGATIVE); BARBITURATE SCREEN URINE NEGATIVE (NEGATIVE); BENZODIAZEPINES SCREEN URINE NEGATIVE (NEGATIVE); CANNABINOID SCREEN, URINE NEGATIVE (NEGATIVE); COCAINE SCREEN URINE NEGATIVE (NEGATIVE); METHADONE STAT NEGATIVE (NEGATIVE); METHAMPHETAMINE SCREEN URINE S NEGATIVE (NEGATIVE); OPIATE SCREEN URINE NEGATIVE (NEGATIVE); OXYCODONE STAT NEGATIVE (NEGATIVE); PROPOXYPHENE STAT NEGATIVE (NEGATIVE); TRICYCLIC ANTIDEPRESSANTS SCRE NEGATIVE (NEGATIVE)
[2017-08-13 09:56] LABS: INR 0.9 (0.8-1.4); PROTHROMBIN TIME PATIENT 12.5 SEC (12.2-14.7)
[2017-08-13 10:00] LABS: FIBRIN DEGRADATION PRODUCTS 0.34 UG/ML (0.00-0.49)
--- NOTE | 2017-08-13 10:09 | Diagnostic Imaging Report ---
EXAM: CT head without contrast INDICATION: Seizure. Jumbled speech. Evaluate for stroke. COMPARISON is made to a prior CT head from 02/09/2017. FINDINGS: There is no CT evidence of acute intracranial hemorrhage. There is no evidence of intracranial mass effect or shift. There is no hydrocephalus. There is no abnormal extra-axial fluid collection and the basilar cisterns appear patent. There is no CT evidence of loss of friedman-white differentiation or abnormal hypodensity within the basal ganglia or within the posterior fossa. No focal abnormally dense blood vessel evident. The mastoids appear clear. There is a small left maxillary sinus mucous retention cyst. The orbital contents are unremarkable. There is no acute calvarial abnormality. IMPRESSION: 1. No CT evidence of loss of friedman-white differentiation or abnormal hypodensity within the basal ganglia to suggest acute ischemia by CT. There is no hemorrhage, mass effect or hydrocephalus. Dictated by: Dictated on workstation # [id number]
--- NOTE | 2017-08-13 10:23 | Diagnostic Imaging Report ---
INDICATION: Seizure, speech jumbled and unable to form sentence. TECHNIQUE: Single view chest 10:21 AM. CORRELATION STUDY: None FINDINGS: The heart size, mediastinal configuration and pulmonary vascularity are within normal limits. Lungs are clear with likely chronic type change about the lung parenchyma. No infiltrate. IMPRESSION: 1. No radiographic findings to suggest acute abnormality of the chest. Dictated by: Dictated on workstation # [id number]
[2017-08-13 11:03] VITALS: BP 130/82
== END 2017-08-13 11:03 | disposition left against medical advice (07) ==
LOC: EDUNIT# 07:43 → ER 07:44
DX: R56.9 Unspecified convulsions (principal); F17.210 Nicotine dependence, cigarettes, uncomplicated; Z21 Asymptomatic human immunodeficiency virus [HIV] infection status
CPT/HCPCS: 36415; 70450; 71045; 80053; 80306; 80320; 81000; 82962; 84484; 85025; 85379; 85610; 85730; 86141; 93005; 93041

== ENCOUNTER 2018-07-12 23:23 | Emergency (ER) | payer BC, MEDICAID ==
[~2018-07-12] VITALS: Ht 171.4 cm; Wt 77.1 kg
--- OUTSIDE RECORDS SUMMARY | 2018-07-12 23:30 | XMS REPORT ---
Author Author Rhoda Irvin [facility] Address [address] [place], [place] [id number] Care Team Providers Care Painter Helper Sign Name Role Phone Rhoda Irvin Unavailable PROBLEMS Type Condition ICD9-CM Code LHN68-HG Code Onset Dates Condition Status SNOMED Code Problem Hyperlipidemia E78.5 Active 11477827 Problem Cough R05 Active 77377440 Problem Shortness of breath R06.02 Active 198754351 Problem Hepatitis B B19.10 Active 46539153 Problem Seizures R56.9 Active 82757548 Problem Excessive daytime sleepiness G47.19 Active 716027792181 Problem Syncope and collapse R55 Active 321491436 Problem Acquired immune deficiency syndrome B20 Active 45350627 Problem Other fatigue R53.83 Active 30710984 Problem History of smoking 10-25 pack years Z87.891 Active 23351672 ALLERGIES No Known Allergies ENCOUNTERS Encounter Location Date Diagnosis [address] [id number] Mar, Acquired immune deficiency syndrome B20 ; Influenza vaccine needed Z23 ; Seizures R56.9 ; Excessive daytime sleepiness G47.19 ; Pain in right shoulder M25.511 and Pain in left shoulder M25.[address] [id number] Oct, Human immunodeficiency virus (HIV) disease B20 ; Need for pneumococcal vaccine Z23 ; Hyperlipidemia E78.5 ; Hepatitis B B19.10 ; Need for kbuirbzxvt-isszsxb-njokagfvx (Tdap) vaccine Z23 ; Need for hepatitis C screening test Z11.59 and Screen for STD (sexually transmitted disease) Z11.[address] [id number] Jul, Acquired immune deficiency syndrome B20 and Lipid screening Z13.220 [facility] [address] [place] [address] May, [address] [address] Feb, [address] [address] Feb, [address] [id number] Feb, Acquired immune deficiency syndrome B20 ; Vertigo R42 and Hyperlipidemia E78.[address] [address] Nov, [address] [id number] Nov, Acquired immune deficiency syndrome B20 ; Cough R05 ; History of smoking 10-25 pack years Z87.891 ; Other fatigue R53.83 ; Hepatitis B B19.10 ; Syncope and collapse R55 and Shortness of breath R06.[address] [id number] August, AIDS B20 ; Hepatitis B B19.10 and Other fatigue R53.[address] [id number] May, AIDS B20 ; Hepatitis B B19.10 ; Hyperlipidemia E78.5 and Screening for prostate cancer Z12.[address] [id number] Jan, Acquired immune deficiency syndrome B20 ; Influenza vaccine needed Z23 ; Hepatitis B B19.10 and Hyperlipidemia E78.[address] [address] Oct, [address] [id number] Oct, Hyperlipidemia E78.5 ; Hepatitis B B19.10 and AIDS B20 [address] [address] Sep, [address] [address] Sep, [address] [address] Sep, IMMUNIZATIONS Vaccine Route Administration Date Status Influenza Split 3 yrs > (QUAD) IM Intramuscular Mar 09, 2018 Administered SOCIAL HISTORY Never Assessed REASON FOR VISIT HIV follow up PLAN OF CARE Activity Details Follow Up 4 Months Reason: Pending Test Human Immunodeficiency Virus (HIV-1), Quantitative, Real-time PCR (graph) 99651 Pending Test Rapid Plasma Reagin (RPR), Test w/ Reflex to Quant RPR/Confirm Treponema pallidum Antibodies 84548 Pending Test Metabolic Panel (14), Comprehensive (CMP) 92839 Pending Test CD4/CD8 Ratio Profile 16663 VITAL SIGNS Height 67.5 in 2018-03-09 Weight 178 lbs 2018-03-09 Temperature 98.1 degrees Fahrenheit 2018-03-09 Heart Rate 63 /min 2018-03-09 Respiratory Rate 18 /min 2018-03-09 Oximetry 98 % 2018-03-09 BMI 27.46 kg/m2 2018-03-09 Blood pressure systolic 118 mm Hg 2018-03-09 Blood pressure diastolic 80 mm Hg 2018-03-09 MEDICATIONS Medication Instructions Dosage Frequency Start Date End Date Duration Status Genvoya 150 mg/150 mg/200/mg/10 mg Oral Once a day 1 tablet 24h Active Celebrex 200 MG Orally Twice a day 1 capsule with food 12h Mar, 30 day(s) Active Gabapentin 300 MG Orally Twice a day 1 capsule 12h Active RESULTS No Results PROCEDURES Procedure Date Ordered Result Body Site T CELL, ABSOLUTE COUNT/RATIO Mar 09, 2018 IMMUNIZATION ADMIN Mar 09, 2018 COMPREHEN METABOLIC PANEL Mar 09, 2018 HIV-1, DNA, QUANT Mar 09, 2018 FLU VAC NO PRSV 4 JU 3 YRS+ Mar 09, 2018 BLOOD SEROLOGY, QUALITATIVE Mar 09, 2018 INSTRUCTIONS MEDICATIONS ADMINISTERED No Known Medications MEDICAL (GENERAL) HISTORY Type Description Date Medical History HIV-1988 Medical History IVDU Medical History Hep B Surgical History nasal surgery 1987 Hospitalization History AIDS 1999
--- OUTSIDE RECORDS SUMMARY | 2018-07-12 23:31 | XMS REPORT ---
Author Author BOY AMBRIZ [facility] Address [address] [place] [address] Care Team Providers Care Cottrell Operator Name Role Phone BOY AMBRIZ Unavailable PROBLEMS Type Condition ICD9-CM Code EVM41-OR Code Onset Dates Condition Status SNOMED Code Problem Hyperlipidemia, unspecified E78.5 Active 49526029 Problem Prostate cancer screening Z12.5 Active 415230967 Problem Human immunodeficiency virus (HIV) disease B20 Active 64544295 Problem Seizure disorder G40.909 Active 864619253 ALLERGIES No Information ENCOUNTERS Encounter Location Date Diagnosis [place] [id number] [place] [address] Mar, [place] [id number] [place] [address] 33933- 5216 Oct, [place] [id number] [place] [address]- 1990 August, [place] [id number] [place] [address]97- 3003 August, Seizure-like activity R56.9 and Strain of neck muscle, initial encounter S16.1XXA [place] [id number] [place] [address]56- 7079 Jul, [place] [id number] [place] [address] 80171- 1625 Feb, [place] [address] [address] August, [place] [id number] [place] [address]- 5079 15 May, 2016 Human immunodeficiency virus (HIV) disease B20 ; Prostate cancer screening Z12.5 and Hyperlipidemia, unspecified E78.5 [facility] [address] [address] May, [facility] [id number] [place] [address] Jan, [facility] [id number] [place] [phone] Oct, Dental caries K02.9 [facility] [address] [place] [address]374[address] 2546 Oct, [facility] [address] [id number] Sep, [facility] [address] [address] Sep, Dental examination Z01.20 IMMUNIZATIONS No Known Immunizations SOCIAL HISTORY Never Assessed REASON FOR VISIT PLAN OF CARE VITAL SIGNS MEDICATIONS Unknown Medications RESULTS No Results PROCEDURES No Known procedures INSTRUCTIONS MEDICATIONS ADMINISTERED No Known Medications MEDICAL (GENERAL) HISTORY Type Description Date Medical History HIV/AIDS Medical History Hepatitis B
--- OUTSIDE RECORDS SUMMARY | 2018-07-12 23:31 | XMS REPORT ---
Author Author TRACI CORDERO [facility] Address [address] [place] [address] Care Team Providers Care Assistance Coordinator Name Role Phone TRACI CORDERO Unavailable PROBLEMS Type Condition ICD9-CM Code HWA17-IG Code Onset Dates Condition Status SNOMED Code Problem Hyperlipidemia, unspecified E78.5 Active 53306374 Problem Prostate cancer screening Z12.5 Active 423602441 Problem Human immunodeficiency virus (HIV) disease B20 Active 99976057 Problem Seizure disorder G40.909 Active 279935430 ALLERGIES No Information ENCOUNTERS Encounter Location Date Diagnosis [place] [id number] [place] [address]28- 6194 Oct, [place] [id number] [place] [address] 47895- 6388 August, [place] [id number] [place] [address] 88338- 9371 August, Seizure-like activity R56.9 and Strain of neck muscle, initial encounter S16.1XXA [place] [id number] [place] [address] 41046- 1323 Jul, [facility] [id number] [place] [address] 75200- 9558 Feb, [place] [id number] [place] [address] 32039- 2317 August, [place] [id number] [place] [address] 91670- 6968 15 May, 2016 Human immunodeficiency virus (HIV) disease B20 ; Prostate cancer screening Z12.5 and Hyperlipidemia, unspecified E78.5 [facility] [id number] [place] [address] 42753- 2546 May, [facility] [id number] [address] Jan, [facility] [address] [phone] Oct, Dental caries K02.9 [facility] [id number], [place] [address] Oct, [facility] [address] [id number] Sep, [facility] [address] [facility] [id number] [id number] Sep, Dental examination Z01.20 IMMUNIZATIONS No Known Immunizations SOCIAL HISTORY Never Assessed REASON FOR VISIT Requests return call PLAN OF CARE VITAL SIGNS MEDICATIONS Unknown Medications RESULTS No Results PROCEDURES No Known procedures INSTRUCTIONS MEDICATIONS ADMINISTERED No Known Medications MEDICAL (GENERAL) HISTORY Type Description Date Medical History HIV/AIDS Medical History Hepatitis B
--- OUTSIDE RECORDS SUMMARY | 2018-07-12 23:31 | XMS REPORT ---
Author Author BOY AMBRIZ [facility] Address [address] [place] [address] Care Team Providers Care Body Technician/Painter Name Role Phone BOY AMBRIZ Unavailable PROBLEMS Type Condition ICD9-CM Code MZZ12-JJ Code Onset Dates Condition Status SNOMED Code Problem Hyperlipidemia, unspecified E78.5 Active 68853318 Problem Prostate cancer screening Z12.5 Active 883572810 Problem Human immunodeficiency virus (HIV) disease B20 Active 03934916 Problem Seizure disorder G40.909 Active 972675221 ALLERGIES No Information ENCOUNTERS Encounter Location Date Diagnosis [place] [id number] [place] [address] 95933- 2281 Mar, [place] [id number] [place] [address] 90725- 4093 Oct, [place] [id number] [place] [address] 46749- 3552 August, [place] [id number] [place] [address] 32277- 5967 August, Seizure-like activity R56.9 and Strain of neck muscle, initial encounter S16.1XXA [place] [id number] [place] [address] 41404- 9105 Jul, [place] [id number] [place] [address] 87585- 7936 Feb, [place] [address] [address] 33[address] August, [place] [id number] [place] [address] 68147- 6993 15 May, 2016 Human immunodeficiency virus (HIV) disease B20 ; Prostate cancer screening Z12.5 and Hyperlipidemia, unspecified E78.5 [facility] [address], [place] [address] May, [facility] [id number] [place] [address] 53610- 2546 Jan, [facility] [id number] [place] [id number] Oct, Dental caries K02.9 [facility] [address] [place] [address] 22548- 2546 Oct, [facility] [address] [phone] Sep, [facility] [address] [phone] Sep, Dental examination Z01.20 IMMUNIZATIONS No Known Immunizations SOCIAL HISTORY Never Assessed REASON FOR VISIT PLAN OF CARE VITAL SIGNS MEDICATIONS Unknown Medications RESULTS No Results PROCEDURES No Known procedures INSTRUCTIONS MEDICATIONS ADMINISTERED No Known Medications MEDICAL (GENERAL) HISTORY Type Description Date Medical History HIV/AIDS Medical History Hepatitis B
--- OUTSIDE RECORDS SUMMARY | 2018-07-12 23:31 | XMS REPORT ---
Author Author BOY AMBRIZ [facility] Address [address] [place] [address] Care Team Providers Care Robotics Systems Engineer Name Role Phone BOY AMBRIZ Unavailable PROBLEMS Type Condition ICD9-CM Code ARS24-KH Code Onset Dates Condition Status SNOMED Code Problem Hyperlipidemia, unspecified E78.5 Active 56673726 Problem Prostate cancer screening Z12.5 Active 437485410 Problem Human immunodeficiency virus (HIV) disease B20 Active 06132212 Problem Seizure disorder G40.909 Active 062994599 ALLERGIES No Information ENCOUNTERS Encounter Location Date Diagnosis [place] [id number] [place] [address] 38380- 1849 Mar, [place] [id number] [place] [address] 52309- 2598 Oct, [place] [id number] [place] [address] 51992- 7308 August, [place] [id number] [place] [address] 15384- 8558 August, Seizure-like activity R56.9 and Strain of neck muscle, initial encounter S16.1XXA [place] [id number] [place] [address] 35105- 1595 Jul, [place] [id number] [place] [address] 00387- 7092 Feb, [place] [address] [address]- 9007 August, [place] [id number] [place] [address] 73352- 6534 15 May, 2016 Human immunodeficiency virus (HIV) disease B20 ; Prostate cancer screening Z12.5 and Hyperlipidemia, unspecified E78.5 [facility] [address], [place] [address] May, [facility] [id number] [address] 25[address] Jan, [facility] [id number] [place] [phone] Oct, Dental caries K02.9 [facility] [address] [place] [address] 74236- 2546 Oct, [facility] [address] [phone] Sep, [facility] [address] [id number] Sep, Dental examination Z01.20 IMMUNIZATIONS No Known Immunizations SOCIAL HISTORY Never Assessed REASON FOR VISIT [facility] PLAN OF CARE VITAL SIGNS MEDICATIONS Unknown Medications RESULTS No Results PROCEDURES No Known procedures INSTRUCTIONS MEDICATIONS ADMINISTERED No Known Medications MEDICAL (GENERAL) HISTORY Type Description Date Medical History HIV/AIDS Medical History Hepatitis B
--- OUTSIDE RECORDS SUMMARY | 2018-07-12 23:31 | XMS REPORT ---
Author Author BOY AMBRIZ [facility] Address [address] [place] [address] Care Team Providers Care Psychologist Experimental Name Role Phone BOY AMBRIZ Unavailable PROBLEMS Type Condition ICD9-CM Code EAI41-BA Code Onset Dates Condition Status SNOMED Code Problem Hyperlipidemia, unspecified E78.5 Active 56384929 Problem Prostate cancer screening Z12.5 Active 403811022 Problem Human immunodeficiency virus (HIV) disease B20 Active 36030762 Problem Seizure disorder G40.909 Active 419954900 ALLERGIES No Information ENCOUNTERS Encounter Location Date Diagnosis [place] [id number] [place] [address] 83370- 2284 Mar, [place] [id number] [place] [address] 54202- 1920 Oct, [place] [id number] [place] [address] 39563- 3572 August, [place] [id number] [place] [address] 56602- 9838 August, Seizure-like activity R56.9 and Strain of neck muscle, initial encounter S16.1XXA [place] [id number] [place] [address] 92389- 7065 Jul, [place] [id number] [place] [address] 73814- 0852 Feb, [place] [address] 34820- 7337 August, [place] [id number] [place] [address] 87461- 8670 15 May, 2016 Human immunodeficiency virus (HIV) disease B20 ; Prostate cancer screening Z12.5 and Hyperlipidemia, unspecified E78.5 [facility] [address], [place] [address] 25[address] May, [facility] [id number] [place] [address] 64713- 2546 Jan, [facility] [id number] [place] [address] [id number] Oct, Dental caries K02.9 [facility] [address] [place] [address] 55058- 2546 Oct, [facility] [address] [phone] Sep, [facility] [address] [id number] Sep, Dental examination Z01.20 IMMUNIZATIONS No Known Immunizations SOCIAL HISTORY Never Assessed REASON FOR VISIT PLAN OF CARE VITAL SIGNS MEDICATIONS Unknown Medications RESULTS No Results PROCEDURES No Known procedures INSTRUCTIONS MEDICATIONS ADMINISTERED No Known Medications MEDICAL (GENERAL) HISTORY Type Description Date Medical History HIV/AIDS Medical History Hepatitis B
--- OUTSIDE RECORDS SUMMARY | 2018-07-12 23:31 | XMS REPORT ---
Author Author BOY AMBRIZ [facility] Address [address] [place] [address] Care Team Providers Care Spool Tender Name Role Phone BOY AMBRIZ Unavailable PROBLEMS Type Condition ICD9-CM Code HPZ11-QE Code Onset Dates Condition Status SNOMED Code Problem Hyperlipidemia, unspecified E78.5 Active 11774246 Problem Prostate cancer screening Z12.5 Active 364583233 Problem Human immunodeficiency virus (HIV) disease B20 Active 30207719 Problem Seizure disorder G40.909 Active 436078811 ALLERGIES No Information ENCOUNTERS Encounter Location Date Diagnosis [place] [id number] [place] [address] 21047- 4568 Mar, [place] [id number] [place] [address] 60766- 4349 Oct, [place] [id number] [place] [address] 34101- 1988 August, [place] [id number] [place] [address] 86698- 2827 August, Seizure-like activity R56.9 and Strain of neck muscle, initial encounter S16.1XXA [place] [id number] [place] [address] 38309- 4002 Jul, [place] [id number] [place] [address] 73007- 3261 Feb, [place] [address] 51531- 3784 August, [place] [id number] [place] [address] 56879- 9186 15 May, 2016 Human immunodeficiency virus (HIV) disease B20 ; Prostate cancer screening Z12.5 and Hyperlipidemia, unspecified E78.5 [facility] [address], [place] [address]- 2546 May, [facility] [id number] [address]- 2546 Jan, [facility] [id number] [place] [address] [phone] Oct, Dental caries K02.9 [facility] [address] [place] [address] 75541- 2546 Oct, [facility] [address] [phone] Sep, [facility] [address] [phone] Sep, Dental examination Z01.20 IMMUNIZATIONS No Known Immunizations SOCIAL HISTORY Never Assessed REASON FOR VISIT [facility] PLAN OF CARE VITAL SIGNS MEDICATIONS Unknown Medications RESULTS No Results PROCEDURES No Known procedures INSTRUCTIONS MEDICATIONS ADMINISTERED No Known Medications MEDICAL (GENERAL) HISTORY Type Description Date Medical History HIV/AIDS Medical History Hepatitis B
--- OUTSIDE RECORDS SUMMARY | 2018-07-12 23:31 | XMS REPORT ---
Author Author BEHZAD WALKER Organization [facility] Address [address] [place] [address] Care Team Providers Care Strawhat Blocking Operator Name Role Phone BEHZAD WALKER Unavailable PROBLEMS Type Condition ICD9-CM Code WTZ81-MV Code Onset Dates Condition Status SNOMED Code Problem Prostate cancer screening Z12.5 Active 735751384 Problem Adjustment disorder with disturbance of conduct F43.24 Active 16157100 Problem Seizure disorder G40.909 Active 707060696 Problem Hyperlipidemia, unspecified E78.5 Active 32148210 Problem Human immunodeficiency virus (HIV) disease B20 Active 60770187 ALLERGIES No Information ENCOUNTERS Encounter Location Date Diagnosis [place] [address] 28740- 4156 Jun, [place] [address] 65657- 9751 Jun, Adjustment disorder with disturbance of conduct F43.24 [place] [id number] [place] [address] 81306- 7910 Jun, [place] [id number] [place] [address] 55738- 1830 Jun, [place] [address] 49106- 1300 Jun, Adjustment disorder with disturbance of conduct F43.24 [place] [address] 89402- 3120 May, [place] [address] 89127- 2680 Apr, [place] [address] 25025- 1605 Mar, [place] [address], [place] [address]- 6053 Oct, [facility] [id number] [place] [address] 36492- 5045 August, [facility] [id number] [place] [address] 83463- 0560 August, Seizure-like activity R56.9 and Strain of neck muscle, initial encounter S16.1XXA [facility] [id number] [place] [address] 42148- 0114 Jul, [facility] [id number] [place] [address] 01981- 2282 Feb, [place] [id number] [place] [address] 88289- 7635 August, [place] [id number] [place] [address] 70032- 5167 May, Human immunodeficiency virus (HIV) disease B20 ; Prostate cancer screening Z12.5 and Hyperlipidemia, unspecified E78.5 [facility] [id number] [place] [address] 94960- 7054 May, [facility] [id number] [place] [address] 09734- 4115 Jan, [facility] [id number] [place] [address] [phone] Oct, Dental caries K02.9 [facility] [address], [place] [address]- 1795 Oct, [facility] [id number] [place] [address] [phone] Sep, [facility] [id number] [place] [address] [phone] Sep, Dental examination Z01.20 IMMUNIZATIONS No Known Immunizations SOCIAL HISTORY Never Assessed REASON FOR VISIT Intake PLAN OF CARE Activity Details Follow Up next available Reason:conduct VITAL SIGNS MEDICATIONS Unknown Medications RESULTS No Results PROCEDURES Procedure Date Ordered Result Body Site Psych diagnostic evaluation, established patient June 04, 2018 INSTRUCTIONS MEDICATIONS ADMINISTERED No Known Medications MEDICAL (GENERAL) HISTORY Type Description Date Medical History HIV/AIDS Medical History Hepatitis B
--- OUTSIDE RECORDS SUMMARY | 2018-07-12 23:31 | XMS REPORT ---
Author Author BOY AMBRIZ [facility] Address [address] [place] [address] Care Team Providers Care Technical Project Coordinator Name Role Phone BOY AMBRIZ Unavailable PROBLEMS Type Condition ICD9-CM Code KHN20-IE Code Onset Dates Condition Status SNOMED Code Problem Hyperlipidemia, unspecified E78.5 Active 13352594 Problem Prostate cancer screening Z12.5 Active 070049751 Problem Human immunodeficiency virus (HIV) disease B20 Active 29816502 Problem Seizure disorder G40.909 Active 710282083 ALLERGIES No Information ENCOUNTERS Encounter Location Date Diagnosis [place] [id number] [place] [phone]28 Mar, [place] [id number] [place] [address] 77948- 2741 Oct, [place] [id number] [place] [address] 91431- 2603 August, [place] [id number] [place] [address] 47170- 3128 August, Seizure-like activity R56.9 and Strain of neck muscle, initial encounter S16.1XXA [place] [id number] [place] [address] 73448- 0313 Jul, [place] [id number] [place] [address] 49684- 4906 Feb, [place] [address] [address] August, [place] [id number] [place] [address] 58134- 1266 15 May, 2016 Human immunodeficiency virus (HIV) disease B20 ; Prostate cancer screening Z12.5 and Hyperlipidemia, unspecified E78.5 [facility] [address] [address] May, [facility] [id number] [place] [address] 09477- 2546 Jan, [facility] [id number] [place] [id number] Oct, Dental caries K02.9 [facility] [id number] [place] [address] 71164- 2546 Oct, [facility] [id number] [id number] Sep, [facility] [address] [phone] Sep, Dental examination Z01.20 IMMUNIZATIONS No Known Immunizations SOCIAL HISTORY Never Assessed REASON FOR VISIT PLAN OF CARE VITAL SIGNS MEDICATIONS Unknown Medications RESULTS No Results PROCEDURES No Known procedures INSTRUCTIONS MEDICATIONS ADMINISTERED No Known Medications MEDICAL (GENERAL) HISTORY Type Description Date Medical History HIV/AIDS Medical History Hepatitis B
--- OUTSIDE RECORDS SUMMARY | 2018-07-12 23:31 | XMS REPORT ---
Author Author TRACI CORDERO [facility] Address [address] [place] [address] Care Team Providers Care Fruit Sprayer Name Role Phone TRACI CORDERO Unavailable PROBLEMS Type Condition ICD9-CM Code LFA87-BY Code Onset Dates Condition Status SNOMED Code Problem Hyperlipidemia, unspecified E78.5 Active 66784398 Problem Prostate cancer screening Z12.5 Active 798790016 Problem Human immunodeficiency virus (HIV) disease B20 Active 95455527 Problem Seizure disorder G40.909 Active 375019977 ALLERGIES No Known Allergies ENCOUNTERS Encounter Location Date Diagnosis [place] [id number] [place] [address] 71568- [phone] Oct, [place] [id number] [place] [address] 07374- 4870 August, [place] [id number] [place] [address] 32708- 9786 August, Seizure-like activity R56.9 and Strain of neck muscle, initial encounter S16.1XXA [place] [id number] [place] [address] 81711- 6249 Jul, [place] [id number] [place] [address] 69598- 9700 Feb, [place] [id number] [place] [address] 17686- 5435 August, [place] [address] [address] 15 May, 2016 Human immunodeficiency virus (HIV) disease B20 ; Prostate cancer screening Z12.5 and Hyperlipidemia, unspecified E78.5 [place] [id number] [place] [address] 82180- 2546 May, [facility] [address] [facility] [id number] [address] Jan, [facility] [address] [facility] [id number] [id number] Oct, Dental caries K02.9 [facility] [address] [facility] [id number], [place] [address] Oct, [facility] [address] [facility] [id number] [id number] Sep, [facility] [address] [facility] [id number] [id number] Sep, Dental examination Z01.20 IMMUNIZATIONS No Known Immunizations SOCIAL HISTORY Never Assessed REASON FOR VISIT Establish Fanta- dean herrera, f/u seizure at [facility] PLAN OF CARE Activity Details Follow Up prn Reason: VITAL SIGNS Weight 172.2 lbs 2017-08-14 Temperature 99.1 degrees Fahrenheit 2017-08-14 Heart Rate 76 bpm 2017-08-14 Respiratory Rate 20 2017-08-14 Oximetry 99 % 2017-08-14 Blood pressure systolic 115 mmHg 2017-08-14 Blood pressure diastolic 68 mmHg 2017-08-14 MEDICATIONS Medication Instructions Dosage Frequency Start Date End Date Duration Status Atripla 600-200-300 MG Orally Once a day 1 tablet on an empty stomach 24h Unknown Atripla 134-020-103NY/10 Orally Once a day 1 tablet on an empty stomach 24h Active RESULTS Name Result Date Reference Range MRI : Brain w/o Contrast 2017-08-18 PROCEDURES No Known procedures INSTRUCTIONS MEDICATIONS ADMINISTERED No Known Medications MEDICAL (GENERAL) HISTORY Type Description Date Medical History HIV/AIDS Medical History Hepatitis B
--- OUTSIDE RECORDS SUMMARY | 2018-07-12 23:32 | XMS REPORT ---
Author Author Loretta Tipton [facility] Address [address] [place], [place] [id number] Care Team Providers Care Thermal Engineer Name Role Phone Loretta Tipton Unavailable PROBLEMS Type Condition ICD9-CM Code REN85-MV Code Onset Dates Condition Status SNOMED Code Problem Hyperlipidemia E78.5 Active 38468882 Problem Hepatitis B B19.10 Active 18445329 Problem Cough R05 Active 29547703 Problem Shortness of breath R06.02 Active 074906068 Problem Other fatigue R53.83 Active 10062636 Problem History of smoking 10-25 pack years Z87.891 Active 35166639 Problem Syncope and collapse R55 Active 169817907 Problem Acquired immune deficiency syndrome B20 Active 17742970 ALLERGIES No Known Allergies ENCOUNTERS Encounter Location Date Diagnosis [address] [id number] Oct, Human immunodeficiency virus (HIV) disease B20 ; Need for pneumococcal vaccine Z23 ; Hyperlipidemia E78.5 ; Hepatitis B B19.10 ; Need for xrfzeclotc-nbvnkzr-uowbmxiwy (Tdap) vaccine Z23 ; Need for hepatitis C screening test Z11.59 and Screen for STD (sexually transmitted disease) Z11.[address] [id number] Jul, Acquired immune deficiency syndrome B20 and Lipid screening Z13.[address] [address] May, [address] [address] Feb, [address] [address] Feb, [address] [id number] Feb, Acquired immune deficiency syndrome B20 ; Vertigo R42 and Hyperlipidemia E78.5 [facility] [address] [place] [address] 14 Nov, [address] [id number] Nov, Acquired immune deficiency syndrome B20 ; Cough R05 ; History of smoking 10-25 pack years Z87.891 ; Other fatigue R53.83 ; Hepatitis B B19.10 ; Syncope and collapse R55 and Shortness of breath R06.[address] [id number] August, AIDS B20 ; Hepatitis B B19.10 and Other fatigue R53.[address] [id number] 10 May, 2016 AIDS B20 ; Hepatitis B B19.10 ; Hyperlipidemia E78.5 and Screening for prostate cancer Z12.[address] [id number] Jan, Acquired immune deficiency syndrome B20 ; Influenza vaccine needed Z23 ; Hepatitis B B19.10 and Hyperlipidemia E78.[address] [address] Oct, [address] [id number] Oct, Hyperlipidemia E78.5 ; Hepatitis B B19.10 and AIDS B20 [address] [address] Sep, [address] [address] Sep, [address] [address] 09 Sep, 2015 IMMUNIZATIONS Vaccine Route Administration Date Status Pneumococcal conjugate PCV 13 IM Intramuscular October 20, 2017 Administered Tdap IM Intramuscular October 20, 2017 Administered SOCIAL HISTORY Never Assessed REASON FOR VISIT [facility] f/u PLAN OF CARE Activity Details Follow Up 03/09/18, prn Reason: Pending Test Human Immunodeficiency Virus (HIV-1), Quantitative, Real-time PCR (graph) 84073 Pending Test Hepatitis B (HBV) RT PCR, Quant (Graph) 68258 Pending Test Wet Prep w/ Reflex to Trichomonas Culture 60196 Pending Test Chlamydia / Gonorrhea (GC), [place] [address] 49429 Pending Test Lipid Panel 06133 Pending Test Metabolic Panel (14), Comprehensive (CMP) 82255 Pending Test CD4/CD8 Ratio Profile 34805 Pending Test Hepatitis C (HCV), Quant, Real-time PCR (Graph) 14538 VITAL SIGNS Height 67.5 in 2017-10-20 Weight 178 lbs 2017-10-20 Temperature 98.2 degrees Fahrenheit 2017-10-20 Heart Rate 67 /min 2017-10-20 Respiratory Rate 16 /min 2017-10-20 Oximetry 98 % 2017-10-20 BMI 27.46 kg/m2 2017-10-20 Blood pressure systolic 122 mm Hg 2017-10-20 Blood pressure diastolic 74 mm Hg 2017-10-20 MEDICATIONS Medication Instructions Dosage Frequency Start Date End Date Duration Status Genvoya 150 mg/150 mg/200/mg/10 mg Oral Once a day 1 tablet 24h Feb, 30 days Active RESULTS No Results PROCEDURES Procedure Date Ordered Result Body Site Pneumococcal conjugate PCV 13 October 20, 2017 IMMUNIZATION ADMIN October 20, 2017 Tdap October 20, 2017 T CELL, ABSOLUTE COUNT/RATIO October 20, 2017 HIV-1, DNA, QUANT October 20, 2017 CHYLMD TRACH, DNA, AMP PROBE October 20, 2017 SMEAR, WET M[place], SALINE/INK October 20, 2017 N.GONORRHOEAE, DNA, AMP PROB October 20, 2017 LIPID PANEL SO October 20, 2017 COMPREHEN METABOLIC PANEL October 20, 2017 HEPATITIS C, RNA, QUANT October 20, 2017 HEPATITIS B, QUANT October 20, 2017 INSTRUCTIONS MEDICATIONS ADMINISTERED No Known Medications MEDICAL (GENERAL) HISTORY Type Description Date Medical History HIV-1988 Medical History IVDU Medical History Hep B Surgical History nasal surgery 1987 Hospitalization History AIDS 1999
--- OUTSIDE RECORDS SUMMARY | 2018-07-12 23:33 | XMS REPORT | Continuity of Care Document ---
Author Organization Unknown Address Unknown Allergies Active Description Code Type Severity Reaction Onset Reported/Identified Relationship to Patient Clinical Status Yes No Known Drug Allergies [id number] Drug Allergy Unknown N/A 08/13/2017 Medications There is no data. Problems Date [...] OTHER, UNLISTED Ot R42 DIZZINESS AND GIDDINESS 08/13/2017 ELISSA MAHONEY WHNP Ot B20 HUMAN IMMUNODEFICIENCY VIRUS [HIV] DISEA 08/13/2017 OTHER, UNLISTED Ot R42 DIZZINESS AND GIDDINESS 08/13/2017 KIERSTEN MCKNIGHT, JOSEMANUEL Castañeda Ot F17.210 NICOTINE DEPENDENCE, CIGARETTES, UNCOMPL 08/13/2017 KIERSTEN MCKNIGHT, JOSEMANUEL J Ot R25.9 UNSPECIFIED ABNORMAL INVOLUNTARY MOVEMEN 08/13/2017 KIERSTEN MCKNIGHT, JOSEMANUEL J Ot R56.9 UNSPECIFIED CONVULSIONS 08/13/2017 KIERSTEN MCKNIGHT, JOSEMANUEL J Ot Z21 ASYMPTOMATIC HUMAN IMMUNODEFICIENCY VIRU 08/15/2017 KIERSTEN MCKNIGHT, JOSEMANUEL Castañead Ot F17.210 NICOTINE DEPENDENCE, CIGARETTES, UNCOMPL 08/15/2017 KIERSTEN MCKNIGHT, JOSEMANUEL Castañeda Ot R25.9 UNSPECIFIED ABNORMAL INVOLUNTARY MOVEMEN 08/15/2017 KIERSTEN MCKNIGHT, JOSEMANUEL Castañeda Ot R56.9 UNSPECIFIED CONVULSIONS 08/15/2017 KIERSTEN MCKNIGHT, JOSEMANUEL J Ot Z21 ASYMPTOMATIC HUMAN IMMUNODEFICIENCY VIRU 08/21/2017 TRACI CORDERO MANAGER SERVICING Ot R42 DIZZINESS AND GIDDINESS 08/21/2017 TRACI CORDERO MANAGER SERVICING Ot R47.89 OTHER SPEECH DISTURBANCES 08/21/2017 GILTRACI MANAGER SERVICING Ot R56.9 UNSPECIFIED CONVULSIONS 08/30/2017 TRACI CORDERO MANAGER SERVICING Ot R42 DIZZINESS AND GIDDINESS 08/30/2017 GILTRACI SAUCEDA MANAGER SERVICING Ot R47.89 OTHER SPEECH DISTURBANCES 08/30/2017 GILTRACI SAUCEDA MANAGER SERVICING Ot R56.9 UNSPECIFIED CONVULSIONS 2017 TRACI CORDERO MANAGER SERVICING Ot R42 DIZZINESS AND GIDDINESS 2017 GILTRACI MANAGER SERVICING Ot R47.89 OTHER SPEECH DISTURBANCES 2017 TRACI CORDERO MANAGER SERVICING Ot R56.9 UNSPECIFIED CONVULSIONS 09/27/2017 ELISSA MAHONEY Ot B20 HUMAN IMMUNODEFICIENCY VIRUS [HIV] DISEA 09/27/2017 OTHER, UNLISTED Ot R42 DIZZINESS AND GIDDINESS 09/27/2017 TRACI CORDERO MANAGER SERVICING Ot R42 DIZZINESS AND GIDDINESS 09/27/2017 TRACI CORDERO MANAGER SERVICING Ot R47.89 OTHER SPEECH DISTURBANCES 09/27/2017 TRACI CORDERO MANAGER SERVICING Ot R56.9 UNSPECIFIED CONVULSIONS Procedures There is no data. Results Test [...] (Abs) 0.0 x10E3/uL 0.0-0.1 Absolute CD 4 Sharon 866 /uL [id number] Abs. CD 8 Suppressor [...] PCR <20 copies/mL log10 HIV-1 RNA TNP [id number]/mL Prostate-Specific Ag, Serum - 05/18/16 15:33 Prostate Specific Ag, Serum 0.7 ng/mL 0.0-4.0 RPR, Rfx Qn RPR/Confirm TP - 05/18/16 15:33 RPR Non Reactive Non Reactive CD4/CD8 Ratio Profile [id number] - 02/06/17 09:41 WBC 7.4 x10E3/uL 3.4-10.8 RBC 5.22 x10E6/uL 4.14-5.80 Hemoglobin 15.8 g/dL 12.6-17.7 Hematocrit 48.9 % 37.5-51.0 MCV 94 fL 79-97 MCH 30.3 pg 26.6-33.0 MCHC 32.3 g/dL 31.5-35.7 RDW 14.5 % 12.3-15.4 Platelets 243 x10E3/uL 150-379 Neutrophils TNP NRG Lymphs TNP NRG Monocytes TNP NRG Eos TNP NRG Basos G[employer]GER DELIV[employer] NRG Immature Cells G[employer]GER DELIVERY NRG Neutrophils (Absolute) GAUGER DELIVERY NRG Lymphs (Absolute) TNP NRG Monocytes(Absolute) G[employer]GER DELIVERY NRG Eos (Absolute) TNP NRG Baso (Absolute) TNP NRG Immature Granulocytes [employer] DELIV[employer] NRG Immature Grans (Abs) G[employer]GER DELIV[employer] NRG NRBC [employer] DELIV[employer] NRG Hematology Comments: Note: NRG Absolute CD 4 Sharon TNP NRG % CD 4 Pos. Lymph. 39.0 % 30.8-58.5 Abs. CD 8 Suppressor TNP NRG % CD 8 Pos. Lymph. 43.3 % 12.0-35.5 CD4/CD8 Ratio 0.90 0.92-3.72 Written Authorization - 02/06/17 09:41 Written Authorization NRG Complete urinalysis with reflex to culture - 08/13/17 07:55 Urine color determination YELLOW NRG Urine clarity determination CLEAR NRG Urine pH measurement by test strip 6 5-9 Specific gravity of urine by test strip 1.020 1.016- 1.022 Urine protein assay by test strip, semi-quantitative 1+ NEGATIVE Urine glucose detection by automated test strip NEGATIVE NEGATIVE Erythrocytes detection in urine sediment by light microscopy 2+ NEGATIVE Urine ketones detection by automated test strip NEGATIVE NEGATIVE Urine nitrite detection by test strip NEGATIVE NEGATIVE Urine total bilirubin detection by test strip NEGATIVE NEGATIVE Urine urobilinogen measurement by automated test strip (mass/volume) NORMAL NORMAL Urine leukocyte esterase detection by dipstick NEGATIVE NEGATIVE Automated urine sediment erythrocyte count by microscopy (number/high power field) NONE NRG Automated urine sediment leukocyte count by microscopy (number/high power field ) NONE NRG Bacteria detection in urine sediment by light microscopy NEGATIVE NRG Crystals detection in urine sediment by light microscopy NONE NRG Casts detection in urine sediment by light microscopy NONE NRG Mucus detection in urine sediment by light microscopy NEGATIVE NRG Complete urinalysis with reflex to culture NO NRG Urine drug screening test - 08/13/17 07:55 Urine phencyclidine detection by screening method NEGATIVE NEGATIVE Urine benzodiazepines detection by screening method NEGATIVE NEGATIVE Urine cocaine detection NEGATIVE NEGATIVE Urine amphetamines detection by screening method NEGATIVE NEGATIVE Urine methamphetamine detection by screening method NEGATIVE NEGATIVE Urine cannabinoids detection by screening method NEGATIVE NEGATIVE Urine opiates detection by screening method NEGATIVE NEGATIVE Urine barbiturates detection NEGATIVE NEGATIVE Screening urine tricyclic antidepressants detection NEGATIVE NEGATIVE Urine methadone detection by screening method NEGATIVE NEGATIVE Urine oxycodone detection NEGATIVE NEGATIVE Urine propoxyphene detection NEGATIVE NEGATIVE Complete blood count (CBC) with automated white blood cell (WBC) differential - 08/13/17 08:00 Blood leukocytes automated count (number/volume) 7.5 10*3/uL 4.3-11.0 Blood erythrocytes automated count (number/volume) 5.22 10*6/uL 4.35-5.85 Venous blood hemoglobin measurement (mass/volume) 15.9 g/dL 13.3-17.7 Blood hematocrit (volume fraction) 46 % 40-54 Automated erythrocyte mean corpuscular volume 89 [foz_us] 80-99 Automated erythrocyte mean corpuscular hemoglobin (mass per erythrocyte) 31 pg 25-34 Automated erythrocyte mean corpuscular hemoglobin concentration measurement ( mass/volume) 34 g/dL 32-36 Automated erythrocyte distribution width ratio 13.9 % 10.0-14.5 Automated blood platelet count (count/volume) 212 10*3/uL 130-400 Automated blood platelet mean volume measurement 9.6 [foz_us] 7.4-10.4 Automated blood neutrophils/100 leukocytes 57 % 42-75 Automated blood lymphocytes/100 leukocytes 26 % 12-44 Blood monocytes/100 leukocytes 10 % 0-12 Automated blood eosinophils/100 leukocytes 7 % 0-10 Automated blood basophils/100 leukocytes 1 % 0-10 Blood neutrophils automated count (number/volume) 4.3 10*3 1.8-7.8 Blood lymphocytes automated count (number/volume) 1.9 10*3 1.0-4.0 Blood monocytes automated count (number/volume) 0.8 10*3 0.0-1.0 Automated eosinophil count 0.5 10*3/uL 0.0-0.3 Automated blood basophil count (count/volume) 0.0 10*3/uL 0.0-0.1 Comprehensive metabolic panel - 08/13/17 08:00 Serum or plasma sodium measurement (moles/volume) 140 mmol/L 135-145 Serum or plasma potassium measurement (moles/volume) 4.5 mmol/L 3.6-5.0 Serum or plasma chloride measurement (moles/volume) 108 mmol/L 98-107 Carbon dioxide 22 mmol/L 21-32 Serum or plasma anion gap determination (moles/volume) 10 mmol/L 5-14 Serum or plasma urea nitrogen measurement (mass/volume) 14 mg/dL 7-18 Serum or plasma creatinine measurement (mass/volume) 1.48 mg/dL 0.60-1.30 Serum or plasma urea nitrogen/creatinine mass ratio 9 NRG Serum or plasma creatinine measurement with calculation of estimated glomerular filtration rate 50 NRG Serum or plasma glucose measurement (mass/volume) 114 mg/dL 70-105 Serum or plasma calcium measurement (mass/volume) 9.9 mg/dL 8.5-10.1 Serum or plasma total bilirubin measurement (mass/volume) 0.3 mg/dL 0.1-1.0 Serum or plasma alkaline phosphatase measurement (enzymatic activity/volume) 58 U/L 40-136 Serum or plasma aspartate aminotransferase measurement (enzymatic activity/ volume) 22 U/L 5-34 Serum or plasma alanine aminotransferase measurement (enzymatic activity/volume ) 37 U/L 0-55 Serum or plasma protein measurement (mass/volume) 7.2 g/dL 6.4-8.2 Serum or plasma albumin measurement (mass/volume) 4.3 g/dL 3.2-4.5 Serum or plasma C reactive protein measurement (mass/volume) - 08/13/17 08:00 Serum or plasma C reactive protein measurement (mass/volume) 0.32 mg /dL 0.00-0.50 Serum or plasma ethanol measurement (mass/volume) - 08/13/17 08:00 Serum or plasma ethanol measurement (mass/volume) < mg/dL <10 PT panel in platelet poor plasma by coagulation assay - 08/13/17 08:09 Prothrombin time (PT) in platelet poor plasma by coagulation assay 12.5 s 12.2-14.7 INR in platelet poor plasma or blood by coagulation assay 0.9 0.8-1.4 Activated partial thromboplastin time (aPTT) in platelet poor plasma bycoagulation assay - 08/13/17 08:09 Activated partial thromboplastin time (aPTT) in platelet poor plasma bycoagulation assay 24 s 24-35 Fibrin D-dimer FEU measurement in platelet poor plasma (mass/volume) - 08:09 Fibrin D-dimer FEU measurement in platelet poor plasma (mass/volume) 0.34 ug/mL 0.00-0.49 Serum or plasma troponin i.cardiac measurement (mass/volume) - 08/13/17 08:09 Serum or plasma troponin i.cardiac measurement (mass/volume) < ng/ mL <0.30 Capillary blood glucose measurement by glucometer (mass/volume) - 08/13/17 09: 47 Capillary blood glucose measurement by glucometer (mass/volume) 100 mg/dL 70-110 Chlamydia / Gonorrhea (GC), [place] [id number] - 10/20/17 09:23 Chlamydia trachomatis, [place] Negative Negative Neisseria gonorrhoeae, [place] Negative Negative Lipid Panel [id number] - 10/20/17 09:23 Cholesterol, Total 203 mg/dL 100-199 Triglycerides 392 mg/dL 0-149 HDL Cholesterol 31 mg/dL >39 VLDL Cholesterol Castro 78 mg/dL 5-40 LDL Cholesterol Calc 94 mg/dL 0-99 Comment: GAUGER DELIVERY NRG Metabolic Panel (14), Comprehensive (CMP) [id number] - 10/20/17 09:23 Glucose, Serum 122 mg/dL 65-99 BUN 10 mg/dL 6-24 Creatinine, Serum 1.32 mg/dL 0.76-1.27 eGFR If NonAfricn Am 61 mL/min/1.73 >59 eGFR If Africn Am 70 mL/min/1.73 >59 BUN/Creatinine Ratio 8 9-20 Sodium, Serum 141 mmol/L 134-144 Potassium, Serum 3.8 mmol/L 3.5-5.2 Chloride, Serum 104 mmol/L 96-106 Carbon Dioxide, Total 25 mmol/L 20-29 Calcium, Serum 9.5 mg/dL 8.7-10.2 Protein, Total, Serum 6.8 g/dL 6.0-8.5 Albumin, Serum 4.1 g/dL 3.5-5.5 Globulin, Total 2.7 g/dL 1.5-4.5 A/G Ratio 1.5 1.2-2.2 Bilirubin, Total <0.2 mg/dL 0.0-1.2 Alkaline Phosphatase, S 57 IU/L 39-117 AST (SGOT) 22 IU/L 0-40 ALT (SGPT) 40 IU/L 0-44 CD4/CD8 Ratio Profile [id number] - 10/20/17 09:23 WBC 9.0 x10E3/uL 3.4-10.8 RBC 5.36 x10E6/uL 4.14-5.80 Hemoglobin 16.2 g/dL 13.0-17.7 Hematocrit 47.7 % 37.5-51.0 MCV 89 fL 79-97 MCH 30.2 pg 26.6-33.0 MCHC 34.0 g/dL 31.5-35.7 RDW 14.1 % 12.3-15.4 Platelets 235 x10E3/uL 150-379 Neutrophils 60 % Not Estab. Lymphs 23 % Not Estab. Monocytes 11 % Not Estab. Eos 6 % Not Estab. Basos 0 % Not Estab. Immature Cells G[employer]GER DELIVERY NRG Neutrophils (Absolute) 5.4 x10E3/uL 1.4-7.0 Lymphs (Absolute) 2.1 x10E3/uL 0.7-3.1 Monocytes(Absolute) 0.9 x10E3/uL 0.1-0.9 Eos (Absolute) 0.5 x10E3/uL 0.0-0.4 Baso (Absolute) 0.0 x10E3/uL 0.0-0.2 Immature Granulocytes 0 % Not Estab. Immature Grans (Abs) 0.0 x10E3/uL 0.0-0.1 NRBC [employer] DELIV[employer] NRG Hematology Comments: GAUGER DELIVERY NRG Absolute CD 4 Sharon 834 /uL [phone] % CD 4 Pos. Lymph. 39.7 % 30.8-58.5 Abs. CD 8 Suppressor 830 /uL 109-897 % CD 8 Pos. Lymph. 39.5 % 12.0-35.5 CD4/CD8 Ratio 1.01 0.92-3.72 Hepatitis C (HCV), Quant, Real-time PCR (Graph) [id number] - 10/20/17 09:23 Hepatitis C Quantitation HCV Not Detected IU/mL NRG HCV log10 GAUGER DELIVERY NRG Test Information: [facility] Metabolic Panel (14), Comprehensive (CMP) [id number] - 03/09/18 08:51 Glucose, Serum 68 mg/dL 65-99 BUN 13 mg/dL 6-24 Creatinine, Serum 1.24 mg/dL 0.76-1.27 eGFR If NonAfricn Am 65 mL/min/1.73 >59 eGFR If Africn Am 76 mL/min/1.73 >59 BUN/Creatinine Ratio 10 9-20 Sodium, Serum 144 mmol/L 134-144 Potassium, Serum 4.2 mmol/L 3.5-5.2 Chloride, Serum 103 mmol/L 96-106 Carbon Dioxide, Total 23 mmol/L 20-29 Calcium, Serum 10.4 mg/dL 8.7-10.2 Protein, Total, Serum 7.2 g/dL 6.0-8.5 Albumin, Serum 4.6 g/dL 3.5-5.5 Globulin, Total 2.6 g/dL 1.5-4.5 A/G Ratio 1.8 1.2-2.2 Bilirubin, Total <0.2 mg/dL 0.0-1.2 Alkaline Phosphatase, S 66 IU/L 39-117 AST (SGOT) 25 IU/L 0-40 ALT (SGPT) 50 IU/L 0-44 CD4/CD8 Ratio Profile [id number] - 03/09/18 08:51 WBC 8.4 x10E3/uL 3.4-10.8 RBC 5.21 x10E6/uL 4.14-5.80 Hemoglobin 16.1 g/dL 13.0-17.7 Hematocrit 48.9 % 37.5-51.0 MCV 94 fL 79-97 MCH 30.9 pg 26.6-33.0 MCHC 32.9 g/dL 31.5-35.7 RDW 14.4 % 12.3-15.4 Platelets 248 x10E3/uL 150-379 Neutrophils TNP NRG Lymphs TNP NRG Monocytes TNP NRG Eos TNP NRG Basos G[employer]GER DELIV[employer] NRG Immature Cells GAUGER DELIVERY NRG Neutrophils (Absolute) GAUGER DELIVERY NRG Lymphs (Absolute) TNP NRG Monocytes(Absolute) GAUGER DELIVERY NRG Eos (Absolute) TNP NRG Baso (Absolute) TNP NRG Immature Granulocytes G[employer]GER DELIVERY NRG Immature Grans (Abs) GAUGER DELIVERY NRG NRBC GAUGER DELIVERY NRG Hematology Comments: Note: NRG Absolute CD 4 Sharon TNP NRG % CD 4 Pos. Lymph. 39.5 % 30.8-58.5 Abs. CD 8 Suppressor TNP NRG % CD 8 Pos. Lymph. 40.3 % 12.0-35.5 CD4/CD8 Ratio 0.98 0.92-3.72 Encounters ACCT No. Visit Date/Time Discharge Status Pt. Type Provider Facility Loc./Unit Complaint [id number] 08/18/2017 08:26:00 08/18/2017 23:59:59 CLS Outpatient TRACI CORDERO APRN [facility] RAD SEIZURE LIKE ACTIVITY R56.9 [id number] 08/13/2017 07:44:00 08/13/2017 11:03:00 DIS Emergency JOSEMANUEL BURCH MD [facility] ER SEIZURE [id number] 02/09/2017 12:50:00 02/09/2017 23:59:59 CLS Outpatient OTHER, UNLISTED [facility] RAD R42 VERTIGO [id number] 09/14/2015 08:45:00 09/14/2015 23:59:59 CLS Outpatient ELISSA MAHONEY MAAME [facility] LAB HIV [id number] 07/12/2018 23:25:00 ACT Emergency KIERSTEN MCKNIGHT, JOSEMANUEL Castañeda [facility] ER SOB,HAD SEIZURE 1 HR AGO AT HOME [id number] 06/25/2018 11:30:00 06/25/2018 23:59:59 CLS Outpatient TRACI CORDERO [facility] [id number] 05/20/2016 22:07:00 Document Registration [id number] 05/18/2018 09:45:00 05/18/2018 23:59:59 CLS Outpatient Rhoda Mahoney [facility] [id number] 03/09/2018 10:15:00 Document Registration [id number] 10/20/2017 11:00:00 Document Registration [id number] 02/03/2017 10:00:00 Document Registration
[2018-07-12] MEDS ORDERED: ELVI1TAB3 (23:35)
[2018-07-12] MEDS ORDERED: GABA-488 (23:35)
[2018-07-12] MEDS ORDERED: CELE-63 (23:35)
[2018-07-12] MEDS ORDERED: BICT1TAB (23:35)
--- NOTE | 2018-07-12 23:44 | ED Cough/URI ---
General Chief Complaint: Cough/Cold/Flu Symptoms Stated Complaint: SOB,HAD SEIZURE 1 HR AGO AT HOME Source: patient Exam Limitations: no limitations History of Present Illness Date Seen by Provider: Jul 12, 2018 Time Seen by Provider: 23:30 Initial Comments Patient presents to ER by private conveyance with his significant other chief complaint that about an hour or 2 ago he had a seizure which is not unusual for him but after that he was having a lot of coughing and feeling some burning in his right side of his chest ever time he coughs or takes a deep breath. He denies a history of COPD or asthma. His cough is nonproductive. He has not tried taking anything for it yet. He does not take inhalers. He cannot member the name of the drug takes for his seizure disorder but he says he is routinely on it. He denies any fevers nausea vomiting. Said the seizure came on when he was in his sleep on the couch so he was not eating anything. The patient smokes about half pack per day. Allergies and Home Medications Allergies Coded Allergies: No Known Drug Allergies (Unverified , 08/13/17) Patient Home Medication List Home Medication List Reviewed: Yes Review of Systems Review of Systems Constitutional: No chills, No fever EENTM: No ear discharge, No ear pain Respiratory: cough; No phlegm; short of breath; No wheezing Cardiovascular: No chest pain, No edema Gastrointestinal: No abdominal pain, No constipation, No diarrhea Genitourinary: No discharge, No dysuria Musculoskeletal: No back pain, No joint pain Past Bzsfxwz-Shsbrl-Rkndko Hx Patient Social History Alcohol Use: Denies Use Number of Drinks Today: AA Alcohol Beverage of Choice: Beer Recreational Drug Use: No Smoking Status: Current Everyday Smoker Type Used: Cigarettes, Smokeless Tobacco 2nd Hand Smoke Exposure: Yes Recent Foreign Travel: No Contact w/Someone Who Travel: No Recent Hopitalizations: No Immunizations Up To Date Tetanus Booster (TDap): Unknown Seasonal Allergies Seasonal Allergies: No Past Medical History Surgeries: No Respiratory: No Cardiac: No Neurological: Yes Seizure Disorder HIV/AIDS: Yes Genitourinary: No Gastrointestinal: No Musculoskeletal: No Endocrine: No HEENT: No Cancer: No Psychosocial: No Integumentary: No Blood Disorders: Yes (HIV) Physical Exam Vital Signs - First Documented 07/12/18 23:28 Temp 98.3 Pulse 84 Resp 16 B/P (MAP) 132/84 (100) Pulse Ox 96 O2 Delivery Room Air Capillary Refill : Height: 5'9.00" Weight: 185lbs. oz. 83.308749zb; BMI Method:Stated General Appearance: WD/WN, no apparent distress Eyes: Bilateral Eye Normal Inspection, Bilateral Eye PERRL, Bilateral Eye EOMI HEENT: PERRL/EOMI, normal ENT inspection, pharynx normal Respiratory: no respiratory distress, no accessory muscle use, decreased breath sounds, wheezing (mild right more than left), other (nonproductive coughing) Cardiovascular: normal peripheral pulses, regular rate, rhythm Gastrointestinal: normal bowel sounds, non tender, soft Extremities: no pedal edema, normal capillary refill Neurologic/Psychiatric: alert, normal mood/affect, oriented x 3 Skin: normal color, warm/dry Progress/Results/Core Measures Suspected Sepsis SIRS Temperature: Pulse: Respiratory Rate: Blood Pressure / Mean: Results/Orders My Orders Orders - JOSEMANUEL BURCH Albuterol/Ipra Inhalation Soln (Duoneb I (07/12/18 23:45) Svn Small Volume Nebulizer (07/12/18 23:39) Ketorolac Injection (Toradol Injection) (07/12/18 23:45) Ketorolac Injection (Toradol Injection) (07/12/18 23:45) Ketorolac Injection (Toradol Injection) (07/13/18 00:00) Chest Pa/Lat (2 View) (07/13/18 00:01) Medications Given in ED Current Medications Medications Dose Ordered Sig/Hemanth Route Start Time Stop Time Status Last Admin Dose Admin Albuterol/ Ipratropium 3 ml ONCE ONCE INH 07/12/18 23:45 07/12/18 23:46 DC 07/12/18 23:50 3 ML Ketorolac Tromethamine 30 mg ONCE ONCE IM 07/13/18 00:00 07/13/18 00:01 DC 07/12/18 23:51 30 MG Vital Signs/I&O 07/12/18 07/12/18 23:28 23:50 Temp 98.3 Pulse 84 Resp 16 B/P (MAP) 132/84 (100) Pulse Ox 96 95 O2 Delivery Room Air Room Air Capillary Refill : Progress Note : Time: 23:42 Progress Note . Sounds like he may have aspirated some his saliva while having a seizure in his sleep. We'll get a plain film x-ray give her breathing treatment see if that helps with his coughing. If it does well provide him with some albuterol outpatient. If it does not then we'll try some cough remedies. His oxygenation is 96% on room air with a heart rate in the 70s. He has no fever. We'll also instruct him to follow-up in the middle of next week with primary care for reevaluation. Diagnostic Imaging Diagonstic Imaging: Xray Plain Films/CT/US/NM/MRI: chest (2v) Comments No acute cardiopulmonary process noted. Reviewed: Reviewed by Me Departure Impression Primary Impression: Cough Additional Impressions: Epilepsy Qualified Codes: G40.909 - Epilepsy, unspecified, not intractable, without status epilepticus Leg cramping Bronchitis Disposition: 01 HOME, SELF-CARE Condition: Stable Departure-Patient Inst. Decision time for Depature: 00:24 Referrals: NO,LOCAL PHYSICIAN (PCP/Family) Primary Care Physician Patient Instructions: Cough, Adult (DC) Add. Discharge Instructions: Use vapor rubs such as Vicks or Mentholatum. Throat lozenges and cough drops can be helpful. Sleep with a humidifier on. Drink plenty of fluids and use medicines such as Mucinex or other over-the- counter cough remedies. You can use the Tessalon Perles 1 capsule every 6 hours as needed for cough. For your leg cramps you can drink Gatorade or Powerade once or twice a day for the next couple days and even try a glass of patricia corrie at nighttime. Tylenol and Motrin may reduce the severity of the pain. Take 2 puffs of the albuterol inhaler every 4 hours as necessary for coughing or wheezing. Follow-up with your primary care doctor in the next 1-2 weeks to discuss the possibility of COPD. All discharge instructions reviewed with patient and/or family. Voiced understanding. Scripts Benzonatate (Tessalon Perle) 100 Mg Capsule 100 MG PO Q6H PRN for COUGH, #20 CAP 0 Refills Prov: JOSEMANUEL BURCH 07/13/18 Albuterol Sulfate (PROAIR HFA) 1 Puff Puff 2 PUFF IH Q4H PRN for COUGH for 30 Days, #1 EA 0 Refills 1 PUFF = 90 MCG Prov: JOSEMANUEL BURCH 07/13/18 JOSEMANUEL BURCH Jul 12, 2018 23:44
[2018-07-12] MEDS ORDERED: KETOROLAC 30 MG/ML VIAL IVP ONE (23:45)
[2018-07-12] MEDS ORDERED: RT-ALBUTEROL/IPRATROPIUM 3 ML (DUONEB) VIAL INH ONE (23:45)
[2018-07-12] MEDS ORDERED: KETOROLAC 60 MG/2 ML VIAL IM ONE (23:45)
[2018-07-13] MEDS ORDERED: KETOROLAC 30 MG/ML VIAL IM ONE
[2018-07-13] MEDS ORDERED: BENZ-13 PO (00:30)
[2018-07-13] MEDS ORDERED: RT-ALBUINH IH (00:30)
[2018-07-13 00:38] VITALS: BP 117/82
[2018-07-13] MEDS ORDERED: GABA-488 PO (02:57)
--- NOTE | 2018-07-13 06:38 | Diagnostic Imaging Report ---
Patient History: Shortness of air. Technique: Two views of the chest Comparison: 08/13/2017 FINDINGS: The lung volumes are normal. No focal consolidation is seen. No large pleural effusion or pneumothorax is seen. The cardiomediastinal silhouette is normal in size and contour. No acute osseous abnormality is seen. IMPRESSION: No acute pulmonary abnormality seen. Dictated by: Dictated on workstation # [id number]
== END 2018-07-13 00:41 | disposition home or self-care (01) ==
LOC: EDUNIT# 23:23 → ER 23:25
DX: R05 Cough (principal); G40.909 Epilepsy, unspecified, not intractable, without status epilepticus; J40 Bronchitis, not specified as acute or chronic; R25.2 Cramp and spasm; F17.210 Nicotine dependence, cigarettes, uncomplicated; Z21 Asymptomatic human immunodeficiency virus [HIV] infection status
CPT/HCPCS: 71046; 94640

== ENCOUNTER 2018-07-13 02:41 | Emergency (ER) | payer BC, MEDICAID ==
[~2018-07-13] VITALS: Ht 171.4 cm; Wt 77.1 kg
[~2018-07-13 02:41] MED LIST: BENZ-13 PO; BICT1TAB; CELE-63; ELVI1TAB3; GABA-488; RT-ALBUINH IH
--- NOTE | 2018-07-13 02:51 | ED Neurological Problem ---
General Stated Complaint: SEIZURE Source: patient Exam Limitations: no limitations History of Present Illness Date Seen by Provider: Jul 13, 2018 Time Seen by Provider: 02:40 Initial Comments The patient presents to ER by private conveyance with chief complaint he had a seizure lasting about 2 minutes when he was sitting on his couch at home. He does not member the name of his medication but he says now he is out for the past 2 days. EMS reports he was postictal at the scene. Not as bad as he has in the past when EMS has taken care of him. He is denying any significant pain, nausea, fevers or chills. He was just in the ER a few hours ago and dismissed just prior to having the seizure. He has a history of epilepsy disorder. Allergies and Home Medications Allergies Coded Allergies: No Known Drug Allergies (Unverified , 08/13/17) Home Medications Albuterol Sulfate 1 Puff Puff, 2 PUFF IH Q4H PRN for COUGH 1 PUFF = 90 MCG Prescribed by: JOSEMANUEL BURCH on 07/13/1829 Benzonatate 100 Mg Capsule, 100 MG PO Q6H PRN for COUGH Prescribed by: JOSEMANUEL BURCH on 07/13/1829 Patient Home Medication List Home Medication List Reviewed: Yes Review of Systems Review of Systems Constitutional: No chills, No diaphoresis Eyes: Denies Blindness, Denies Blurred Vision Ears, Nose, Mouth, Throat: denies ear pain, denies ear discharge Respiratory: No cough, No dyspnea on exertion Cardiovascular: No chest pain, No edema Gastrointestinal: No abdominal pain, No constipation, No diarrhea, No nausea Genitourinary: No discharge, No dysuria Past Gfxlpob-Iwwire-Glbryb Hx Patient Social History Alcohol Use: Occasionally Uses Alcohol Beverage of Choice: Beer Recreational Drug Use: No Smoking Status: Current Everyday Smoker Type Used: Cigarettes, Smokeless Tobacco 2nd Hand Smoke Exposure: Yes Recent Foreign Travel: No Contact w/Someone Who Travel: No Recent Hopitalizations: No Immunizations Up To Date Tetanus Booster (TDap): Unknown Seasonal Allergies Seasonal Allergies: No Past Medical History Surgeries: No Respiratory: No Cardiac: No Neurological: Yes Seizure Disorder HIV/AIDS: Yes Genitourinary: No Gastrointestinal: No Musculoskeletal: No Endocrine: No HEENT: No Cancer: No Psychosocial: No Integumentary: No Blood Disorders: Yes (HIV) Physical Exam Vital Signs Capillary Refill : Height, Weight, BMI Height: 5'7.50" Weight: 170lbs. oz. 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, no motor/sensory deficits, alert, normal mood/affect, oriented x 3, other (mildly postictal) Crainal Nerves: normal hearing, normal speech, PERRL Skin: normal color, warm/dry Stroke NIH Stroke Scale Assessment Gaze: Normal (0), Total: 0 Stroke Thrombolytic Exclusion Age 18 or Over: No Acute intenal hemorrhage: No History of CVA: No Uncontrolled Coagulation Defec: No Intracranial Hemorrhage: No Severe Hypertension: No GI or Bleed: No Subarachnoid Hemorrhage: No Intracranial Neoplasm/Aneurysm: No Oral Anticoagulants: No Surgery or Trauma: No Puncture of Non-Compressible V: No Recent CPR: No Diabetic Hemorrhagic Retinopat: No Organ Biopsy: No Recent Obstetric Delivery: No Glucose: No Significant Hepatic Dysfunctio: No NIH Stoke Scale >22: No Bacterial Endocarditis: No Pericarditis: No Improving Symptoms: Yes Platelets: No Progress/Results/Core Measures Progress Progress Note : Time: 02:55 Progress Note When we pulled the patient's pharmacy records from [facility] looks like he is on gabapentin 300 mg 60 a month. We'll give him 600 mg gabapentin tonight and send him home with a prescription to cover him until he can get in with neurologist Dr. Pastor. Departure Impression Primary Impression: Seizure Additional Impression: History of epilepsy Disposition: HOME, SELF-CARE Condition: Stable Departure-Patient Inst. Decision time for Depature: 02:55 Referrals: NO,LOCAL PHYSICIAN (PCP/Family) Primary Care Physician Patient Instructions: Seizures, Adult (DC) Add. Discharge Instructions: supplier manager the gabapentin and take 300 mg capsule twice a day with food. Follow-up with your neurologist within the next 1-2 weeks for refills. Scripts Gabapentin (Gabapentin) 300 Mg Capsule 300 MG PO BID for 14 Days, #30 CAP 0 Refills Prov: JOSEMANUEL BURCH 07/13/18 JOSEMANUEL BURCH Jul 13, 2018 02:51
[2018-07-13] MEDS ORDERED: GABA-488 PO (02:57)
[2018-07-13] MEDS ORDERED: GABAPENTIN 600 MG (NEURONTIN) TAB PO ONE (03:00)
[2018-07-13 03:03] VITALS: BP 123/80
== END 2018-07-13 03:07 | disposition home or self-care (01) ==
LOC: EDUNIT# 02:41 → ER 02:42
DX: G40.909 Epilepsy, unspecified, not intractable, without status epilepticus (principal); F17.210 Nicotine dependence, cigarettes, uncomplicated; Z21 Asymptomatic human immunodeficiency virus [HIV] infection status
CPT/HCPCS: 99283

== ENCOUNTER → 2019-12-17 | Outpatient (CLI) | payer BC, MEDICAID ==
[~2019-12-17] MED LIST changes: +GABA-488 PO
--- NOTE | 2019-12-17 10:15 | Diagnostic Imaging Report ---
INDICATION: Chronic cough PA and lateral views of the chest obtained with comparison made to the study of 07/13/2018. FINDINGS: Heart size and pulmonary vascularity are within normal limits, and the lungs are clear, bilaterally. IMPRESSION: Unremarkable chest. Dictated by: Dictated on workstation # [id number]
== END ==
LOC: RAD 09:43
PROVIDERS: ATTEND Internal Medicine
DX: R05 Cough (principal)
CPT/HCPCS: 71046

== ENCOUNTER 2022-08-26 17:17 | Emergency (ER) | payer BC, MEDICAID ==
[~2022-08-26] VITALS: Ht 172 cm; Wt 74.8 kg
[~2022-08-26 17:17] MED LIST changes: +ALBU8.5H6 IH; -RT-ALBUINH IH
--- NOTE | 2022-08-26 17:41 | ED Cough/URI ---
General Chief Complaint: Cough/Cold/Flu Symptoms Stated Complaint: DIFFICULTY BREATHING|COUGH Nursing Triage Note: PT PRESENTS TO ED VIA POV FROM HOME WITH COMPLAINTS OF COUGH/SOA X 3 DAYS. Source: patient Exam Limitations: no limitations History of Present Illness Date Seen by Provider: August 26, 2022 Time Seen by Provider: 17:24 Initial Comments 56-year-old male presents to the ER with complaints of shortness of air and cough for the last 3 days. He states that his cough is worse at night when lying down. He denies any known sick contacts. He also complains of headache and chest pain only when coughing. He reports nasal congestion. Denies fevers chills. Denies abdominal pain, nausea, vomiting, diarrhea. Denies history of CHF and COPD, but states he has been a smoker for 40 years. Past medical history includes HIV and seizures. States his last CD4 count was 700-800 about 2 to 3 months ago. Allergies and Home Medications Allergies Coded Allergies: No Known Drug Allergies (Unverified , 08/13/17) Patient Home Medication List Home Medication List Reviewed: Yes Albuterol Sulfate (Ventolin Hfa) 1 Puff Puff, 2 PUFF IH Q4H PRN for COUGH Prescribed by: JOSEMANUEL BURCH on 07/13/1829 Albuterol Sulfate (Ventolin Hfa) 1 Puff Puff, 2 PUFF INH Q4H Prescribed by: Radha Cordero on 08/26/221858 Benzonatate (Tessalon Perle) 100 Mg Capsule, 100 MG PO Q6H PRN for COUGH Prescribed by: JOSEMANUEL BURCH on 07/13/1829 Benzonatate (Tessalon Perles) 100 Mg Capsule, 100 MG PO TID Prescribed by: Radha Cordero on 08/26/221858 Bictegrav/Emtricit/Tenofov Ala (Biktarvy 50-200-25 mg Tablet) 1 Each Tablet, (Reported) Entered as Reported by: ÓSCAR SOTELO on 07/12/182334 Celecoxib (Celecoxib) 200 Mg Capsule, (Reported) Entered as Reported by: ÓSCAR SOTELO on 07/12/182334 Elviteg/Emani/Emtric/Tenofo Ala (Genvoya Tablet) 1 Each Tablet, (Reported) Entered as Reported by: ÓSCAR SOTELO on 07/12/182334 Gabapentin (Gabapentin) 300 Mg Capsule, (Reported) Entered as Reported by: ÓSCAR SOTELO on 07/12/182334 Gabapentin (Gabapentin) 300 Mg Capsule, 300 MG PO BID Prescribed by: JOSEMANUEL BURCH on 07/13/18 025 Prednisone (Prednisone) 50 Mg Tab, 50 MG PO DAILY Prescribed by: Radha Cordero on 08/26/22 1859 Review of Systems Review of Systems Constitutional: see HPI Past Fkxnrhw-Lcmubb-Rmbnid Hx Patient Social History Tobacco Use?: Yes Tobacco type used: Cigarettes Smoking Status: Current Everyday Smoker Smokeless Tobacco Frequency: Current Everyday User Substance use?: No Alcohol Use?: No Pt feels they are or have been: No Immunizations Up To Date Tetanus Booster (TDap): Unknown Seasonal Allergies Seasonal Allergies: No Past Medical History Surgery/Hospitalization HX: PMH: HIV, SEIZURES Surgeries: No Respiratory: No Cardiac: No Neurological: Yes Seizure Disorder HIV/AIDS: Yes Genitourinary: No Gastrointestinal: No Musculoskeletal: No Endocrine: No HEENT: No Cancer: No Psychosocial: No Integumentary: No Blood Disorders: Yes (HIV) Physical Exam Vital Signs - First Documented 08/26/22 08/26/22 17:24 18:19 Temp 35.5 Pulse 66 Resp 18 B/P (MAP) 132/87 (102) Pulse Ox 96 O2 Delivery Room Air Capillary Refill : Less Than 3 Seconds Height: 5'7.50" Weight: 170lbs. oz. 77.784815wq; 25.00 BMI Method:Stated General Appearance: WD/WN, no apparent distress Neck: supple, normal inspection Respiratory: no respiratory distress, no accessory muscle use, decreased breath sounds, wheezing Cardiovascular: regular rate, rhythm Extremities: normal range of motion, normal inspection Neurologic/Psychiatric: alert, normal mood/affect Skin: normal color, warm/dry Progress/Results/Core Measures Suspected Sepsis SIRS Temperature: Pulse: 66 Respiratory Rate: 18 Blood Pressure 132 /87 Mean: 102 Results/Orders Lab Results Laboratory Tests Test 08/26/22 17:27 Range/Units SARS-CoV-2 RNA (RT-PCR) Not Detected Not Detecte My Orders Orders - RADHA CORDERO [employer]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 Inhouse Test (08/26/22 17:24) Chest Pa/Lat (2 View) (08/26/22 17:39) Albuterol/Ipra Inhalation Soln (Duoneb I (08/26/22 17:45) Svn Small Volume Nebulizer (08/26/22 17:39) Prednisone Tablet (Deltasone Tablet) (08/26/22 17:45) Benzonatate Capsule (Tessalon Perles) (08/26/22 18:45) Medications Given in ED Vital Signs/I&O 08/26/22 08/26/22 08/26/22 17:24 18:19 19:06 Temp 35.5 Pulse 66 66 Resp 18 B/P (MAP) 132/87 (102) 120/74 Pulse Ox 96 95 96 O2 Delivery Room Air Capillary Refill : Less Than 3 Seconds Blood Pressure Mean: 102 Progress Note : Progress Note Patient seen and evaluated, resting comfortably in bed, no acute distress. Based on exam and symptoms, this is likely bronchitis or the beginnings of COPD. Will Initiate including COVID swab, chest x-ray. DuoNeb and prednisone ordered. Labs and x-ray reviewed. COVID-negative. Patient reports that shortness of air feels better after the breathing treatment. Lung sounds are clear after the pain treatment. This is likely bronchitis. Will discharge patient with albuterol inhaler and steroid burst. Patient instructed to follow-up with primary care provider. Informed that he may need a pulmonary function test when he feels better. Discharge instructions and return precautions provided. Diagnostic Imaging Diagonstic Imaging: Xray Plain Films/CT/US/NM/MRI: chest Comments [facility], [place] NAME: EULALIO [facility] REC#: [id number] PT STATUS: REG ER : 1965 PHYSICIAN: RADHA CORDERO APRN ADMIT DATE: 08/26/22/ER Signed Date of Exam:08/26/22 CHEST PA/LAT (2 VIEW) EXAM: Chest PA/LAT (2 view) INDICATION: Cough. Shortness of air. COMPARISON: 12/17/2019. FINDINGS: Normal heart size and central pulmonary vascularity. Lungs are clear. No pleural effusion or pneumothorax. No acute osseous finding. IMPRESSION: No acute cardiopulmonary finding. Dictated by: Dictated on workstation # [id number] Dict: 08/26/221806 Trans: 08/26/221811 [facility] [id number] Interpreted by: CATHERINE STAFFORD MD Electronically signed by: CATHERINE STAFFORD MD 08/26/221811 Departure Impression Primary Impression: Bronchitis Disposition: 01 HOME, SELF-CARE Condition: Stable Departure-Patient Inst. Decision time for Depature: 18:57 Referrals: NO,LOCAL PHYSICIAN (PCP/Family) Primary Care Physician Patient Instructions: Acute Bronchitis, Adult (DC) Add. Discharge Instructions: Take Tessalon Perles as needed for cough. Use albuterol inhaler as needed for trouble breathing. Take prednisone 1 tablet once a day for the next 4 days. Follow-up with primary care provider. You may need pulmonary function testing when you feel better to assess for COPD. You should stop smoking. Return for shortness of breath, chest pain, or any other new, concerning, or worsening symptoms. All discharge instructions reviewed with patient and/or family. Voiced understanding. Scripts Albuterol Sulfate (VENTOLIN HFA) 1 Puff Puff 2 PUFF INH Q4H, #1 EA 0 Refills 1 PUFF = 90 MCG Prov: RADHA CORDERO APRN 08/26/22 Prednisone (Prednisone) 50 Mg Tab 50 MG PO DAILY for 4 Days, #4 TAB 0 Refills Prov: RADHA CORDERO APRN 08/26/22 Benzonatate (TESSALON PERLES) 100 Mg Capsule 100 MG PO TID, #21 CAP 0 Refills Prov: RADHA CORDERO APRN 08/26/22 RADHA CORDERO APRN August 26, 2022 17:41
[2022-08-26] MEDS ORDERED: RT-ALBUTEROL/IPRATROPIUM 3 ML (DUONEB) VIAL INH ONE (17:45)
[2022-08-26] MEDS ORDERED: predniSONE 20 MG TAB PO ONE (17:45)
--- NOTE | 2022-08-26 18:10 | Diagnostic Imaging Report ---
EXAM: Chest PA/LAT (2 view) INDICATION: Cough. Shortness of air. COMPARISON: 12/17/2019. FINDINGS: Normal heart size and central pulmonary vascularity. Lungs are clear. No pleural effusion or pneumothorax. No acute osseous finding. IMPRESSION: No acute cardiopulmonary finding. Dictated by: Dictated on workstation # [id number]
[2022-08-26] MEDS ORDERED: BENZONATATE 100 MG (TESSALON) CAPSULE PO ONE (18:45)
[2022-08-26] MEDS ORDERED: BENZ100C18 PO (18:59)
[2022-08-26] MEDS ORDERED: RT-ALBUINH INH (18:59)
[2022-08-26] MEDS ORDERED: PRD50T PO (18:59)
[2022-08-26 19:06] VITALS: BP 120/74
== END 2022-08-26 19:08 | disposition home or self-care (01) ==
LOC: EDUNIT# 17:17 → ER 17:19
DX: J40 Bronchitis, not specified as acute or chronic (principal); F17.210 Nicotine dependence, cigarettes, uncomplicated; Z20.822 Contact with and (suspected) exposure to COVID-19
CPT/HCPCS: 71046; 87636; 94640; 94664; 99283